=== PATIENT | female | born 1955 | race Caucasian/White ===

== ENCOUNTER → 2016-06-15 | Outpatient (CLI) | payer BC ==
--- NOTE | 2016-06-15 15:47 | RAD ---
DATE: 06/15/2016 EXAM: DIGITAL SCREEN BILAT W/CAD HISTORY: Routine screening COMPARISON: 09/20/2012, 04/22/2010 This study was interpreted with the benefit of Computerized Aided Detection (CAD). FINDINGS: The breasts are predominantly fatty in nature. No new or enlarging breast densities are seen. Minimal benign type calcification is noted. No suspicious microcalcifications are evident. IMPRESSION: There is no mammographic evidence of malignancy in either breast. BI-RADS CATEGORY: 2 BENIGN FINDING(S) RECOMMENDED FOLLOW-UP: 12M 12 MONTH FOLLOW-UP PQRS compliance statement: Patient information was entered into a reminder system with a target due date for the next mammogram. Mammography is a sensitive method for finding small breast cancers, but it does not detect them all and is not a substitute for careful clinical examination. A negative mammogram does not negate a clinically suspicious finding and should not result in delay in biopsying a clinically suspicious abnormality. "Our facility is accredited by the [employer] Mammography Program."
== END | disposition home or self-care (01) ==
LOC: MAMMO 08:01
PROVIDERS: ATTEND Internal Medicine
DX: Z12.31 Encounter for screening mammogram for malignant neoplasm of breast (principal)
CPT/HCPCS: G0202; 77067

== ENCOUNTER → 2016-06-22 | Outpatient (CLI) | payer BC ==
--- NOTE | 2016-06-22 17:21 | KCIC ---
Examination: DEXA scan. HISTORY History of postmenopausal COMPARISON None available FINDINGS The bone mineral Density in the lumbar spine is 1.177 grams/centimeter square with a T-score of 1.2 and Z-score of 2.8. The bone mineral density in the left femoral neck is 0.757 grams per cm2 with a T-score of -1.5 and Z-score of -0.4. IMPRESSION The bone mineral density in the left femoral neck is osteopenia. Electronically signed by: Mir Walden (Jun 22, 2016 17:19:53)
== END | disposition home or self-care (01) ==
LOC: KCIC DEXA 09:54
PROVIDERS: ATTEND Nurse Practitioner
DX: Z78.0 Asymptomatic menopausal state (principal); M85.80 Other specified disorders of bone density and structure, unspecified site
CPT/HCPCS: 77080

== ENCOUNTER → 2016-10-22 | Outpatient (CLI) | payer BC ==
--- NOTE | 2016-10-22 14:24 | RAD ---
EXAM: Right lower extremity venous Doppler. HISTORY: Right lower extremity pain/swelling. COMPARISON: None. FINDINGS: Grayscale and Doppler analysis of the right lower extremity deep venous system was performed with graded compression and augmentation. The common femoral, greater saphenous, superficial femoral, popliteal and calf veins were assessed. There is no evidence of deep venous thrombosis. IMPRESSION: 1. No evidence of deep venous thrombosis.
== END | disposition home or self-care (01) ==
LOC: US 13:46
PROVIDERS: ATTEND Internal Medicine
DX: M79.604 Pain in right leg (principal)
CPT/HCPCS: 93971

== ENCOUNTER → 2017-09-10 | Outpatient (CLI) | payer BC | END | disposition home or self-care (01) | LOC: MAMMO 10:30 | DX: Z12.31 Encounter for screening mammogram for malignant neoplasm of breast (principal) | CPT/HCPCS: 77067 ==

== ENCOUNTER 2019-01-30 11:33 | Inpatient (IN) | payer BC ==
[~2019-01-30] VITALS: Ht 154.9 cm; Wt 84.0 kg
[2019-01-30] MEDS ORDERED: NITROGLYCERIN SUBLINGUAL 0.4 MG BOTTLE OF 25. SL PRN ×2 (12:45→16:00)
[2019-01-30] MEDS ORDERED: IPRATRPIUM/ALBUTEROL 0.5/2.5MG 3 ML NEBU. NEB ONE ×2 (12:45)
[2019-01-30] MEDS ORDERED: ASPIRIN 325 MG TABLET PO ONE (12:45)
--- NOTE | 2019-01-30 12:56 | EKG ---
[facility] [address] [place] [address] Test Date: 2019-01-30 Test Time: 12:24:13 Pat Name: CASSIA ACOSTA Department: Room: Gender: F Director Of Strategic Communications: : 1955 Requested By: LEANNE CRUZ Order Number: [id number] Reading MD: Augusto Vasuqez MD Measurements Intervals [place] Rate: 73 P: 63 DC: 146 QRS: 36 QRSD: 84 T: 86 QT: 374 QTc: 416 Interpretive Statements SINUS RHYTHM Electronically Signed On 02-13-2019 9:29:23 HOOP RIVETER by Augusto Vasquez MD
[2019-01-30 13:02] LABS: BARBITURATES NEG (NEG); BENZODIAZEPINES NEG (NEG); CANNABINOIDS NEG (NEG); COCAINE NEG (NEG); METHADONE NEG (NEG); OPIATES NEG (NEG); PHENCYCLIDINE NEG (NEG)
[2019-01-30 13:03] LABS: AMPHETAMINE/METHAMPHETAMINE NEG (NEG)
[2019-01-30 13:08] LABS: BILIRUBIN,URINE NEGATIVE (NEG); CLARITY,URINE CLEAR; COLOR,URINE YELLOW; NITRITE,URINE NEGATIVE (NEG); PROTEIN,URINE NEGATIVE (NEG-TRACE)
[2019-01-30 13:16] LABS: BASO % 0 % (0-3); EOS # 0.1 x10^3/uL (0.0-0.7); EOS % 1 % (0-3); HEMOGLOBIN 12.1 g/dL (12.0-15.5); LYMPH % 20 % (24-48); MEAN CORPUSCULAR HEMOGLOBIN 33 pg (25-35); MEAN CORPUSCULAR HGB CONC 36 g/dL (31-37); MEAN CORPUSCULAR VOLUME 91 fL (79-100); MONO # 0.7 x10^3/uL (0.0-1.1); MONO % 7 % (0-9); NEUT # 6.9 x10^3/uL (1.8-7.7); NEUT % 71 % (31-73); PLATELET COUNT 237 x10^3/uL (140-400); RED BLOOD COUNT 3.72 x10^6/uL (3.50-5.40); RED CELL DISTRIBUTION WIDTH 12.4 % (11.5-14.5); WHITE BLOOD COUNT 9.7 x10^3/uL (4.0-11.0)
--- NOTE | 2019-01-30 13:23 | RAD ---
Single AP view of the chest. Comparison: None. Indication: Chest pain Findings: The heart is at the upper limits of normal. There is no pneumothorax or effusion. No air space or interstitial disease. Impression: 1. No acute cardiopulmonary process. Electronically signed by: Jacek Santos MD (01/30/2019 1:20 PM) [facility]
[2019-01-30 13:29] LABS: CALCIUM 9.3 mg/dL (8.5-10.1); CREATININE 0.6 mg/dL (0.6-1.0); POTASSIUM 4.1 mmol/L (3.5-5.1)
[2019-01-30 13:36] LABS: ALBUMIN 3.4 g/dL (3.4-5.0); ALBUMIN/GLOBULIN RATIO 0.9 (1.0-1.7); TOTAL BILIRUBIN 0.6 mg/dL (0.2-1.0)
[2019-01-30 13:46] LABS: CREATINE KINASE 47 U/L (26-192)
[2019-01-30 13:50] LABS: BACTERIA,URINE 0 /HPF (0-FEW); RBC,URINE 0 /HPF (0-2); SQUAMOUS EPITHELIAL CELL,UR OCC /LPF; WBC,URINE OCC /HPF (0-4)
[2019-01-30] MEDS ORDERED: IOHEXOL 350 MG/ML 100 ML VIAL. IV ONE (14:15)
[2019-01-30] MEDS ORDERED: CONTRAST GIVEN. MC PRN (14:15)
--- NOTE | 2019-01-30 14:58 | RAD ---
CT ANGIOGRAPHY CHEST History: Chest pain. Elevated d-dimer. Technique: CT of the chest was performed with contrast. PE protocol. Maximum intensity projection coronal and sagittal reconstructions were performed. Exposure: One or more of the following individualized dose reduction techniques were utilized for this examination: 1. Automated exposure control 2. Adjustment of the mA and/or kV according to patient size 3. Use of iterative reconstruction technique. Contrast: 100 mL Omnipaque 350 IV contrast. Comparison: None Findings: Chest: No pulmonary embolism. No aortic aneurysm or dissection. Left upper lobe masslike consolidation measures approximately 2.4 x 2.3 cm. There is adjacent groundglass opacities. Additional nodular opacity within the right middle lobe measures 1.3 x 0.8 cm. No pleural effusion. Left lower lobe nodular opacity measures 1.2 x 0.7 cm (image #113) Bilateral calcified granulomas. 2 mm right middle lobe pulmonary nodule (image #97). Mild prominent mediastinal lymph nodes largest prevascular lymph node measures 2.5 x 1.1 cm. Upper abdomen: The imaged upper abdomen is unremarkable. Bones: No pathologic osseous lesions. Impression: 1. Left upper lobe masslike consolidation with adjacent groundglass opacities, may represent pneumonia or inflammatory process. Recommend short-term interval follow-up after treatment to ensure resolution and exclude malignancy. 2. Additional nodular opacities within the right middle and left lower lobe, may relate to infectious or inflammatory process. Recommend attention on follow-up. 3. Mildly prominent mediastinal lymph nodes, likely reactive. Recommend attention on follow-up. Electronically signed by: Elfego Uribe DO (01/30/2019 2:55 PM) [facility]
[2019-01-30] MEDS ORDERED: ONDANSETRON PF 4 MG/2 ML VIAL. IV PRN (16:00)
[2019-01-30] MEDS ORDERED: MORPHINE SULFATE 4 MG/ML VIAL. IV PRN (16:00)
[2019-01-30] MEDS ORDERED: ACETAMINOPHEN 325 MG TABLET. PO PRN (16:00)
[2019-01-30] MEDS ORDERED: cefTRIAXone IV Push 1 GM VIAL. IVP ONE (16:30)
--- NOTE | 2019-01-30 17:49 | PHYS DOC ---
Past Medical History Past Medical History: Hypertension Additional Past Medical Histor: hypokalemia Past Surgical History: Cholecystectomy Alcohol Use: None Drug Use: None Adult General Chief Complaint Chief Complaint: PLEURISY HPI HPI Patient is a 64 year old female who presents to the ED today complaining of 9 out of 10 left-sided chest pain radiating to her back that has been going on since this morning, patient describes the pain as sharp and intermittent worse when she is coughing. She states she's had a cough for a couple days. Patient denies any fever. She states she is a smoker. Denies anything specifically relieving this pain. Review of Systems Review of Systems Constitutional: Denies fever or chills [] Eyes: Denies change in visual acuity, redness, or eye pain [] HENT: Denies nasal congestion or sore throat [] Respiratory: Reports cough, denies shortness of breath [] Cardiovascular: Reports chest pain GI: Denies abdominal pain, nausea, vomiting, bloody stools or diarrhea [] : Denies dysuria or hematuria [] Musculoskeletal: Denies back pain or joint pain [] Integument: Denies rash or skin lesions [] Neurologic: Denies headache, focal weakness or sensory changes [] All other systems were reviewed and found to be within normal limits, except as documented in this note. Current Medications Current Medications Current Medications Medications (Trade) Dose Ordered Sig/Jack Start Time Stop Time Status Last Admin Dose Admin Albuterol/ Ipratropium (Duoneb) 3 ml 1X ONCE 01/30/19 12:45 01/30/19 13:00 DC Aspirin (Fabrizio Aspirin) 325 mg 1X ONCE 01/30/19 12:45 01/30/19 13:00 DC 01/30/19 13:49 325 MG Info (CONTRAST GIVEN -- Rx MONITORING) 1 each PRN DAILY PRN 01/30/19 14:15 02/01/19 14:14 Iohexol (Omnipaque 350 Mg/ml) 100 ml 1X ONCE 01/30/19 14:15 01/30/19 14:16 DC 01/30/19 14:09 100 ML Nitroglycerin (Nitrostat) 0.4 mg PRN Q5MIN PRN 01/30/19 12:45 01/31/19 12:44 Allergies Allergies Allergies Coded Allergies Type Severity Reaction Last Updated Verified erythromycin base Allergy Mild 01/30/19 Yes Physical Exam Physical Exam Constitutional: Well developed, well nourished, no acute distress, non-toxic appearance. [] HENT: Normocephalic, atraumatic, bilateral external ears normal, oropharynx moist, no oral exudates, nose normal. [] Eyes: PERRLA, EOMI, conjunctiva normal, no discharge. [] Neck: Normal range of motion, no tenderness, supple, no stridor. [] Cardiovascular:Heart rate regular rhythm, no murmur [] Lungs & Thorax: Diminished breath sounds to posterior lung bases worse on the left Abdomen: Bowel sounds normal, soft, no tenderness, no masses, no pulsatile masses. [] Skin: Warm, dry, no erythema, no rash. [] Back: No tenderness, no CVA tenderness. [] Extremities: No tenderness, no cyanosis, no clubbing, ROM intact, no edema. [] Neurologic: Alert and oriented X 3, normal motor function, normal sensory function, no focal deficits noted. [] Psychologic: Affect normal, judgement normal, mood normal. [] Current Patient Data Vital Signs Vital Signs Date Time Temp Pulse Resp B/P (MAP) Pulse Ox O2 Delivery O2 Flow Rate FiO2 01/30/19 13:50 78 20 156/70 (98) 97 Room Air 01/30/19 12:51 98.7 98.7 Lab Values Laboratory Tests Test 01/30/19 12:13 01/30/19 13:05 Urine Color Yellow Urine Clarity Clear Urine pH 6.0 Urine Specific [place] 1.015 Urine Protein Negative mg/dL (NEG-TRACE) Urine Glucose (UA) Negative mg/dL (NEG) Urine Ketones (Stick) Negative mg/dL (NEG) Urine Blood Negative (NEG) Urine Nitrite Negative (NEG) Urine Bilirubin Negative (NEG) Urine Urobilinogen Dipstick 1.0 mg/dL (0.2 mg/dL) Urine Leukocyte Esterase Negative (NEG) Urine RBC 0 /HPF (0-2) Urine WBC Occ /HPF (0-4) Urine Squamous Epithelial Cells Occ /LPF Urine Bacteria 0 /HPF (0-FEW) Urine Mucus Slight /LPF Urine Opiates Screen Neg (NEG) Urine Methadone Screen Neg (NEG) Urine Barbiturates Neg (NEG) Urine Phencyclidine Screen Neg (NEG) Urine Amphetamine/Methamphetamine Neg (NEG) Urine Benzodiazepines Screen Neg (NEG) Urine Cocaine Screen Neg (NEG) Urine Cannabinoids Screen Neg (NEG) Urine Ethyl Alcohol Neg (NEG) White Blood Count 9.7 x10^3/uL (4.0-11.0) Red Blood Count 3.72 x10^6/uL (3.50-5.40) Hemoglobin 12.1 g/dL (12.0-15.5) Hematocrit 34.0 % (36.0-47.0) L Mean Corpuscular Volume 91 fL (79-100) Mean Corpuscular Hemoglobin 33 pg (25-35) Mean Corpuscular Hemoglobin Concent 36 g/dL (31-37) Red Cell Distribution Width 12.4 % (11.5-14.5) Platelet Count 237 x10^3/uL (140-400) Neutrophils (%) (Auto) 71 % (31-73) Lymphocytes (%) (Auto) 20 % (24-48) L Monocytes (%) (Auto) 7 % (0-9) Eosinophils (%) (Auto) 1 % (0-3) Basophils (%) (Auto) 0 % (0-3) Neutrophils # (Auto) 6.9 x10^3/uL (1.8-7.7) Lymphocytes # (Auto) 2.0 x10^3/uL (1.0-4.8) Monocytes # (Auto) 0.7 x10^3/uL (0.0-1.1) Eosinophils # (Auto) 0.1 x10^3/uL (0.0-0.7) Basophils # (Auto) 0.0 x10^3/uL (0.0-0.2) D-Dimer (Rebeka) 1.03 ug/mlFEU (0.00-0.50) H Sodium Level 140 mmol/L (136-145) Potassium Level 4.1 mmol/L (3.5-5.1) Chloride Level 102 mmol/L (98-107) Carbon Dioxide Level 31 mmol/L (21-32) Anion Gap 7 (6-14) Blood Urea Nitrogen 11 mg/dL (7-20) Creatinine 0.6 mg/dL (0.6-1.0) Estimated GFR (Cockcroft-Gault) 100.0 BUN/Creatinine Ratio 18 (6-20) Glucose Level 116 mg/dL (70-99) H Calcium Level 9.3 mg/dL (8.5-10.1) Magnesium Level 2.0 mg/dL (1.8-2.4) Total Bilirubin 0.6 mg/dL (0.2-1.0) Aspartate Amino Transferase (AST) 14 U/L (15-37) L Alanine Aminotransferase (ALT) 13 U/L (14-59) L Alkaline Phosphatase 64 U/L (46-116) Creatine Kinase 47 U/L (26-192) Creatine Kinase MB (Mass) 0.6 ng/mL (0.0-3.6) Creatine Kinase MB Relative Index % (0-4) Troponin I Quantitative < 0.017 ng/mL (0.000-0.055) NJ-Rps-O-Type Natriuretic Peptide 244 pg/mL (0-124) H Total Protein 7.0 g/dL (6.4-8.2) Albumin 3.4 g/dL (3.4-5.0) Albumin/Globulin Ratio 0.9 (1.0-1.7) L Thyroid Stimulating Hormone (TSH) 0.620 uIU/mL (0.358-3.74) Laboratory Tests 01/30/19 13:05 Laboratory Tests 01/30/19 13:05 EKG EKG [address] Earl sinus rhythm HR 73 no STEMI[] Radiology/Procedures Radiology/Procedures PROCEDURE: PORTABLE CHEST 1V Single AP view of the chest. Comparison: None. Indication: Chest pain Findings: The heart is at the upper limits of normal. There is no pneumothorax or effusion. No air space or interstitial disease. Impression: 1. No acute cardiopulmonary process. Electronically signed by: Jacek Santos MD (01/30/2019 1:20 PM) [facility] DICTATED and SIGNED BY: JACEK SANTOS MD DATE: 01/30/19 1320 []PROCEDURE: CT ANGIOGRAPHY CHEST CT ANGIOGRAPHY CHEST History: Chest pain. Elevated d-dimer. Technique: CT of the chest was performed with contrast. PE protocol. Maximum intensity projection coronal and sagittal reconstructions were performed. Exposure: One or more of the following individualized dose reduction techniques were utilized for this examination: 1. Automated exposure control 2. Adjustment of the mA and/or kV according to patient size 3. Use of iterative reconstruction technique. Contrast: 100 mL Omnipaque 350 IV contrast. Comparison: None Findings: Chest: No pulmonary embolism. No aortic aneurysm or dissection. Left upper lobe masslike consolidation measures approximately 2.4 x 2.3 cm. There is adjacent groundglass opacities. Additional nodular opacity within the right middle lobe measures 1.3 x 0.8 cm. No pleural effusion. Left lower lobe nodular opacity measures 1.2 x 0.7 cm (image #113) Bilateral calcified granulomas. 2 mm right middle lobe pulmonary nodule (image #97). Mild prominent mediastinal lymph nodes largest prevascular lymph node measures 2.5 x 1.1 cm. Upper abdomen: The imaged upper abdomen is unremarkable. Bones: No pathologic osseous lesions. Impression: 1. Left upper lobe masslike consolidation with adjacent groundglass opacities, may represent pneumonia or inflammatory process. Recommend short-term interval follow-up after treatment to ensure resolution and exclude malignancy. 2. Additional nodular opacities within the right middle and left lower lobe, may relate to infectious or inflammatory process. Recommend attention on follow-up. 3. Mildly prominent mediastinal lymph nodes, likely reactive. Recommend attention on follow-up. Electronically signed by: Elfego Uribe DO (01/30/2019 2:55 PM) [facility] DICTATED and SIGNED BY: ELFEGO URIBE DO DATE: 01/30/19 1459 Course & Med Decision Making Course & Med Decision Making Pertinent Labs and Imaging studies reviewed. (See chart for details) This is a 64-year-old female patient presented to the ED today with complaints of left-sided chest pain worse on coughing that began this morning. EKG was negative, troponin is normal, heart score is 4, CBC with a normal WBC, CMP-no acute findings, D-dimer 1.03. CTA chest was done CTA -Left upper lobe masslike consolidation wi th adjacent groundglass opacities, may represent pneumonia or inflammatory process. Recommend short-term interval follow-up after treatment to ensure resolution and exclude malignancy. Additional nodular opacities within the right middle and left lower lobe, may relate to infectious or inflammatory process. Recommend attention on follow-up. Mildly prominent mediastinal lymph nodes, likely reacti ve. Recommend attention on follow-up. Spoke with Dr. Maldonado who accepted patient for admission and requested pulmonary consult Routine consult placed for cardiology and pulmonology Given Rocephin in the ED Dragon Disclaimer Dragon Disclaimer This electronic medical record was generated, in whole or in part, using a voice recognition dictation system. The HEART Score for CP Pts HEART Score for Chest Pain: HEART Score for Chest Pain Response (Comments) Value History Slighlty/Non-Suspicious 0 ECG Normal 0 Age > 65 2 Risk Factors 1 or 2 Risk Factors 1 Troponin >1-<3x Normal Limit 1 Total 4 Risk Factors: Risk Factors: DM, Current or recent (<one month) smoker, HTN, HLP, family history of CAD, obesity. Risk Scores: Score 0 - 3: 2.5% MACE over next 6 weeks - Discharge Home Score 4 - 6: 20.3% MACE over next 6 weeks - Admit for Clinical Observation Score 7 - 10: 72.7% MACE over next 6 weeks - Early Invasive Strategies Departure Departure Impression: Primary Impression: Chest pain Additional Impression: Community acquired pneumonia Disposition: 09 ADMITTED INPATIENT Condition: STABLE Referrals: AILIN MALDONADO MD (PCP) Problem Qualifiers Primary Impression: Chest pain Chest pain type: unspecified Qualified Codes: R07.9 - Chest pain, unspecified Additional Impression: Community acquired pneumonia Laterality: left Lung location: lower lobe of lung Qualified Codes: J18.1 - Lobar pneumonia, unspecified organism LEANNE CRUZ 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
--- NOTE | 2019-01-30 17:55 | PDOC ---
Provider Note Provider Note Patient seen. History and Physical dictated. See dictation#[id number] AILIN PATEL MD Jan 30, 2019 17:55
[2019-01-30] MEDS ORDERED: MAGN400T22 PO (17:58)
[2019-01-30] MEDS ORDERED: CITA20TA6 PO (17:58)
[2019-01-30] MEDS ORDERED: MONT10TA49 PO (17:58)
[2019-01-30] MEDS ORDERED: TIZA4TAB2 PO (17:58)
[2019-01-30] MEDS ORDERED: GABA600T7 PO (17:58)
[2019-01-30] MEDS ORDERED: POTA10TA12 PO (17:58)
[2019-01-30] MEDS ORDERED: CYAN-25 PO (17:58)
[2019-01-30] MEDS ORDERED: FLUT9.9S NS (17:58)
[2019-01-30] MEDS ORDERED: CETI10TA22 PO (17:58)
[2019-01-30] MEDS ORDERED: LISI-130 PO (17:58)
[2019-01-30 18:00] VITALS: BP 126/60
--- NOTE | 2019-01-30 18:30 | NUR ---
pt admitted to room 260. oriented to room and call light. denies pain at this time. meal tray ordered. pt currently SR at 87 on the monitor.
[2019-01-30] MEDS: ENOXAPARIN 40 MG/0.4 ML SYRINGE. SQ SCH (18:38)
[2019-01-30] MEDS: MONTELUKAST SODIUM 10 MG TABLET. PO SCH (18:40)
--- NOTE | 2019-01-30 18:41 | NUR ---
pt already took cole today
--- NOTE | 2019-01-30 18:45 | HP ---
ADMIT DATE: HISTORY OF PRESENT ILLNESS: This is a 64-year-old female started having chest pain, since last night. The pain is worse with deep breathing and it is in the left upper chest. The patient also was feeling very cold for the last 3 days prior to this episode. She denies any chills, fever, nausea, vomiting, heartburn, abdominal pain, dyspnea, dizziness or diaphoresis. She denies any palpitations. Because of the persistent chest pain, she came to the Emergency Room. In the Emergency Room, WBC count was 9.7, hemoglobin 12.1. Sodium 140, potassium 4.1, BUN 11, creatinine 0.6. BNP was 244, albumin 3.4. Troponin levels were less than 0.017. CK 47, CK-MB 0.6. TSH 0.620. Urine drug screen was negative. Urinalysis was negative. D-dimer was 1.03. WBC count 9.7, hemoglobin 12.1, polys 71. Chest x-ray was unremarkable for any acute changes, but the CTA of the chest showed left upper lobe mass-like consolidation with adjacent ground-glass opacities, may represent pneumonia or inflammatory process. Additional nodular opacities within the right middle, right lower and left lower lobe may relate to infectious or inflammatory process, mildly prominent mediastinal lymph nodes, likely reactive. Because of the chest pain, possible pneumonia and lung mass, the patient was admitted for further evaluation and management. SYSTEMS REVIEW: As noted in the history of present illness. The patient denies any skin rash, diarrhea or any other symptoms. Other systems reviewed and are negative. PAST MEDICAL HISTORY: The patient has a history of hypertension, depression, anxiety, allergic rhinitis, Nance's palsy, COPD, obesity. PAST SURGICAL HISTORY: Includes cholecystectomy for cholelithiasis. ALLERGIES: THE PATIENT IS ALLERGIC TO ERYTHROMYCIN. MEDICATIONS: Reviewed and reconciled. FAMILY HISTORY: Brother had carcinoma of lung and brain and liver. Father had pancreatic cancer. Mother and sister had hypertension. SOCIAL HISTORY: The patient has a history of smoking. No history of alcoholism or drug abuse. PHYSICAL EXAMINATION: VITAL SIGNS: Temperature 98.7, pulse 76 per minute, respirations 14 per minute, blood pressure 139/65 mmHg. GENERAL: The patient is alert, oriented and not in acute distress. EYES: Pupils equal, reacting to light. Conjunctivae are pink. Sclerae muddy. HENT: Mild congestion of throat. SKIN: Warm and dry. There is no rash. NECK: Supple. JVP normal. No thyromegaly. No lymphadenopathy. Trachea midline. LUNGS: Decreased breath sounds bilaterally with no wheezing. Occasional rhonchi. CARDIOVASCULAR: S1, S2 regular. ABDOMEN: Soft, nontender, no guarding, no rigidity. Bowel sounds present. EXTREMITIES: No edema. CENTRAL NERVOUS SYSTEM: Alert and oriented. LABORATORY FINDINGS: As noted in the history of present illness. IMPRESSION: 1. Pneumonia. 2. Exacerbation of chronic obstructive pulmonary disease. 3. Peripheral neuropathy. 4. Chest pain. 5. Hypertension. 6. Left upper lobe lung mass. 7. Allergic rhinitis. 8. Idiopathic peripheral neuropathy, on gabapentin. 9. Allergic rhinitis. 10. Depression. 11. Anxiety. PLAN: The patient is started on IV Rocephin. We will consult Dr. Bonilla for pulmonary evaluation and management. Consult Dr. Garcia for cardiology evaluation and management. Recheck labs in a.m. Order influenza A and B test, order Lovenox subcutaneously for DVT prophylaxis. For details, please refer to the orders. AILIN PATEL MD DR: RADHA/stephan JOB#: [id number] / [id number]
[2019-01-30 19:00] VITALS: BP 111/51
[2019-01-30] MEDS: IPRATRPIUM/ALBUTEROL 0.5/2.5MG 3 ML NEBU. NEB SCH (19:22)
[2019-01-30 19:25] LABS: INFLUENZA A PATIENT NEGATIVE (NEGATIVE); INFLUENZA B PATIENT NEGATIVE (NEGATIVE)
[2019-01-30] MEDS: GABAPENTIN 300 MG CAPSULE. PO SCH (21:08)
[2019-01-30 23:10] VITALS: BP 145/65
[2019-01-31 03:40] VITALS: BP 156/72
[2019-01-31 05:59] LABS: BASO % 0 % (0-3); EOS # 0.1 x10^3/uL (0.0-0.7); EOS % 1 % (0-3); HEMATOCRIT 32.7 % (36.0-47.0); HEMOGLOBIN 11.6 g/dL (12.0-15.5); LYMPH # 1.9 x10^3/uL (1.0-4.8); LYMPH % 21 % (24-48); MEAN CORPUSCULAR HEMOGLOBIN 32 pg (25-35); MEAN CORPUSCULAR HGB CONC 35 g/dL (31-37); MEAN CORPUSCULAR VOLUME 91 fL (79-100); MONO # 0.7 x10^3/uL (0.0-1.1); MONO % 8 % (0-9); NEUT # 6.3 x10^3/uL (1.8-7.7); NEUT % 69 % (31-73); PLATELET COUNT 236 x10^3/uL (140-400); RED BLOOD COUNT 3.59 x10^6/uL (3.50-5.40); RED CELL DISTRIBUTION WIDTH 12.1 % (11.5-14.5); WHITE BLOOD COUNT 9.1 x10^3/uL (4.0-11.0)
[2019-01-31 06:30] LABS: CALCIUM 8.8 mg/dL (8.5-10.1); CREATININE 0.7 mg/dL (0.6-1.0); GFR 83.7; POTASSIUM 4.2 mmol/L (3.5-5.1)
[2019-01-31 07:00] VITALS: BP 126/58
[2019-01-31] MEDS: IPRATRPIUM/ALBUTEROL 0.5/2.5MG 3 ML NEBU. NEB SCH ×4 (07:22→19:41)
[2019-01-31] MEDS: CITALOPRAM 20 MG TABLET. PO SCH (08:40)
[2019-01-31] MEDS: ACETAMINOPHEN 325 MG TABLET. PO PRN ×2 (08:40→22:04)
[2019-01-31] MEDS: GABAPENTIN 300 MG CAPSULE. PO SCH ×2 (08:40→22:01)
[2019-01-31] MEDS: CYANOCOBALAMIN (VITAMIN B-12) 1,000 MCG TABLET. PO SCH (08:40)
[2019-01-31] MEDS: MAGNESIUM OXIDE 400 MG TABLET PO SCH (08:40)
[2019-01-31] MEDS: FLUTICASONE 50MCG/NASAL SPRAY 16GM BOTTLE. NS SCH (08:40)
[2019-01-31] MEDS: CETIRIZINE HCL 10 MG TABLET. PO SCH (08:40)
[2019-01-31] MEDS ORDERED: AZITHRMYCN 500MG IVPB FOR OMNI 250 ML IV SCH (09:00)
[2019-01-31] MEDS: cefTRIAXone IV Push 1 GM VIAL. IVP SCH (09:51)
--- NOTE | 2019-01-31 10:42 | PDOC ---
IM PROGRESS NOTES- Subjective Subjective Has pain in the left upper chest. Feeling better. Objective Vitals/I&O Vital Signs Date Time Temp Pulse Resp B/P (MAP) Pulse Ox O2 Delivery O2 Flow Rate FiO2 01/31/19 08:00 Room Air 01/31/19 07:22 94 01/31/19 07:00 97.9 80 18 126/58 (80) 97.9 I & O 01/30/19 01/30/19 01/31/19 15:00 23:00 07:00 Intake Total 300 ml Output Total 600 ml Balance -300 ml Physical Exam Physical Exam General appearance - alert,ill appearing, and in no distress and oriented to person, place, and time Mental Status - alert, oriented to person, place, and time, affect appropriate to mood Head - normal Chest -decreased breath sounds bilaterally Heart - S1 and S2 normal Abdomen - soft, nontender Neurological - alert and oriented Musculoskeletal - no muscular tenderness noted Extremities - no pedal edema Skin - warm and dry Labs Laboratory Tests Test 01/30/19 12:13 01/30/19 13:05 01/30/19 16:30 01/30/19 18:48 Urine Color Yellow Urine Clarity Clear Urine pH 6.0 Urine Specific [place] 1.015 Urine Protein Negative mg/dL (NEG-TRACE) Urine Glucose (UA) Negative mg/dL (NEG) Urine Ketones (Stick) Negative mg/dL (NEG) Urine Blood Negative (NEG) Urine Nitrite Negative (NEG) Urine Bilirubin Negative (NEG) Urine Urobilinogen Dipstick 1.0 mg/dL (0.2 mg/dL) Urine Leukocyte Esterase Negative (NEG) Urine RBC 0 /HPF (0-2) Urine WBC Occ /HPF (0-4) Urine Squamous Epithelial Cells Occ /LPF Urine Bacteria 0 /HPF (0-FEW) Urine Mucus Slight /LPF Urine Opiates Screen Neg (NEG) Urine Methadone Screen Neg (NEG) Urine Barbiturates Neg (NEG) Urine Phencyclidine Screen Neg (NEG) Urine Amphetamine/Methamphetamine Neg (NEG) Urine Benzodiazepines Screen Neg (NEG) Urine Cocaine Screen Neg (NEG) Urine Cannabinoids Screen Neg (NEG) Urine Ethyl Alcohol Neg (NEG) White Blood Count 9.7 x10^3/uL (4.0-11.0) Red Blood Count 3.72 x10^6/uL (3.50-5.40) Hemoglobin 12.1 g/dL (12.0-15.5) Hematocrit 34.0 % (36.0-47.0) L Mean Corpuscular Volume 91 fL (79-100) Mean Corpuscular Hemoglobin 33 pg (25-35) Mean Corpuscular Hemoglobin Concent 36 g/dL (31-37) Red Cell Distribution Width 12.4 % (11.5-14.5) Platelet Count 237 x10^3/uL (140-400) Neutrophils (%) (Auto) 71 % (31-73) Lymphocytes (%) (Auto) 20 % (24-48) L Monocytes (%) (Auto) 7 % (0-9) Eosinophils (%) (Auto) 1 % (0-3) Basophils (%) (Auto) 0 % (0-3) Neutrophils # (Auto) 6.9 x10^3/uL (1.8-7.7) Lymphocytes # (Auto) 2.0 x10^3/uL (1.0-4.8) Monocytes # (Auto) 0.7 x10^3/uL (0.0-1.1) Eosinophils # (Auto) 0.1 x10^3/uL (0.0-0.7) Basophils # (Auto) 0.0 x10^3/uL (0.0-0.2) D-Dimer (Rebeka) 1.03 ug/mlFEU (0.00-0.50) H Sodium Level 140 mmol/L (136-145) Potassium Level 4.1 mmol/L (3.5-5.1) Chloride Level 102 mmol/L (98-107) Carbon Dioxide Level 31 mmol/L (21-32) Anion Gap 7 (6-14) Blood Urea Nitrogen 11 mg/dL (7-20) Creatinine 0.6 mg/dL (0.6-1.0) Estimated GFR (Cockcroft-Gault) 100.0 BUN/Creatinine Ratio 18 (6-20) Glucose Level 116 mg/dL (70-99) H Calcium Level 9.3 mg/dL (8.5-10.1) Magnesium Level 2.0 mg/dL (1.8-2.4) Total Bilirubin 0.6 mg/dL (0.2-1.0) Aspartate Amino Transferase (AST) 14 U/L (15-37) L Alanine Aminotransferase (ALT) 13 U/L (14-59) L Alkaline Phosphatase 64 U/L (46-116) Creatine Kinase 47 U/L (26-192) Creatine Kinase MB (Mass) 0.6 ng/mL (0.0-3.6) Creatine Kinase MB Relative Index % (0-4) Troponin I Quantitative < 0.017 ng/mL (0.000-0.055) < 0.017 ng/mL (0.000-0.055) UG-Nfa-W-Type Natriuretic Peptide 244 pg/mL (0-124) H Total Protein 7.0 g/dL (6.4-8.2) Albumin 3.4 g/dL (3.4-5.0) Albumin/Globulin Ratio 0.9 (1.0-1.7) L Thyroid Stimulating Hormone (TSH) 0.620 uIU/mL (0.358-3.74) Influenza Type A Antigen Negative (NEGATIVE) Influenza Type B Antigen Negative (NEGATIVE) Test 01/30/19 19:19 01/31/19 05:45 Troponin I Quantitative < 0.017 ng/mL (0.000-0.055) White Blood Count 9.1 x10^3/uL (4.0-11.0) Red Blood Count 3.59 x10^6/uL (3.50-5.40) Hemoglobin 11.6 g/dL (12.0-15.5) L Hematocrit 32.7 % (36.0-47.0) L Mean Corpuscular Volume 91 fL (79-100) Mean Corpuscular Hemoglobin 32 pg (25-35) Mean Corpuscular Hemoglobin Concent 35 g/dL (31-37) Red Cell Distribution Width 12.1 % (11.5-14.5) Platelet Count 236 x10^3/uL (140-400) Neutrophils (%) (Auto) 69 % (31-73) Lymphocytes (%) (Auto) 21 % (24-48) L Monocytes (%) (Auto) 8 % (0-9) Eosinophils (%) (Auto) 1 % (0-3) Basophils (%) (Auto) 0 % (0-3) Neutrophils # (Auto) 6.3 x10^3/uL (1.8-7.7) Lymphocytes # (Auto) 1.9 x10^3/uL (1.0-4.8) Monocytes # (Auto) 0.7 x10^3/uL (0.0-1.1) Eosinophils # (Auto) 0.1 x10^3/uL (0.0-0.7) Basophils # (Auto) 0.0 x10^3/uL (0.0-0.2) Sodium Level 140 mmol/L (136-145) Potassium Level 4.2 mmol/L (3.5-5.1) Chloride Level 103 mmol/L (98-107) Carbon Dioxide Level 30 mmol/L (21-32) Anion Gap 7 (6-14) Blood Urea Nitrogen 11 mg/dL (7-20) Creatinine 0.7 mg/dL (0.6-1.0) Estimated GFR (Cockcroft-Gault) 83.7 Glucose Level 109 mg/dL (70-99) H Calcium Level 8.8 mg/dL (8.5-10.1) Laboratory Tests 01/30/19 13:05 01/31/19 05:45 Laboratory Tests 01/30/19 13:05 01/31/19 05:45 Meds Current Medications Medications (Trade) Dose Ordered Sig/Jack Route PRN Reason Start Time Stop Time Status Last Admin Dose Admin Albuterol/ Ipratropium (Duoneb) 3 ml 1X ONCE NEB 01/30/19 12:45 01/30/19 13:00 DC 01/30/19 12:44 Aspirin (Fabrizio Aspirin) 325 mg 1X ONCE PO 01/30/19 12:45 01/30/19 13:00 DC 01/30/19 13:49 Iohexol (Omnipaque 350 Mg/ml) 100 ml 1X ONCE IV 01/30/19 14:15 01/30/19 14:16 DC 01/30/19 14:09 Ceftriaxone Sodium (Rocephin) 1 gm 1X ONCE IVP 01/30/19 16:30 01/30/19 16:31 DC 01/30/19 17:11 Enoxaparin Sodium (Lovenox 40mg Syringe) 40 mg Q24H SQ 01/30/19 17:30 01/30/19 18:38 Acetaminophen (Tylenol) 650 mg PRN Q6HRS PRN PO MILD PAIN / TEMP 01/30/19 17:45 01/31/19 08:40 Ceftriaxone Sodium (Rocephin) 1 gm Q24H IVP 01/31/19 10:00 01/31/19 09:51 Albuterol/ Ipratropium (Duoneb) 3 ml RTQID NEB 01/30/19 20:00 01/31/19 07:22 Cetirizine HCl (ZyrTEC) 10 mg DAILY PO 01/31/19 09:00 01/31/19 08:40 Citalopram Hydrobromide (CeleXA) 20 mg DAILY PO 01/31/19 09:00 01/31/19 08:40 Cyanocobalamin (Vitamin B-12) 5,000 mcg DAILY PO 01/31/19 09:00 01/31/19 08:40 Magnesium Oxide (Magnesium Oxide) 400 mg DAILY PO 01/31/19 09:00 01/31/19 08:40 Fluticasone Propionate (Flonase) 2 spray DAILY NS 01/31/19 09:00 01/31/19 08:40 Gabapentin (Neurontin) 300 mg BID PO 01/30/19 21:00 01/31/19 08:40 Assessment Assessment 1. Pneumonia. 2. Exacerbation of chronic obstructive pulmonary disease. 3. Peripheral neuropathy. 4. Chest pain. 5. Hypertension. 6. Left upper lobe lung mass. 7. Allergic rhinitis. 8. Idiopathic peripheral neuropathy, on gabapentin. 9. Allergic rhinitis. 10. Depression. 11. Anxiety. PLAN: The patient is started on IV Rocephin. We will consult Dr. Bonilla for pulmonary evaluation and management. Consult Dr. Garcia for cardiology evaluation and management. Recheck labs in a.m. Order influenza A and B test, order Lovenox subcutaneously for DVT prophylaxis. For details, please refer to the orders. Left lung mass Pneumonia-continue IV Rocephin Exacerbation of COPD- continue breathing treatment. Plan Plan For more details regarding further plans, please refer to the orders. AILIN PATEL MD Jan 31, 2019 10:42
--- NOTE | 2019-01-31 10:50 | PDOC2 ---
CARDIAC CONSULT DATE OF CONSULT Date of Consult DATE: 01/31/19 TIME: 10:43 REASON FOR CONSULT Reason for Consult: Chest pain REFERRING PHYSICIAN Referring Physician: Cheli SOURCE Source: Chart review, Patient HISTORY OF PRESENT ILLNESS HISTORY OF PRESENT ILLNESS This is a pleasant 64 yo female admitted for complains of cough and chest pain. Reports that yesterday morning she started having left scapular pain that radiated around her left chest going to sternal region. This was crampy feeling and exacerbated by deep inspiration. She then started coughing after that. She did have some yellow wputum. Also had episodes of heartburn the other night relieved by nolberto seltzer. Has been having some chills in the last few days but no recorded fever. Denies any nausea vomiting, diaphoresis, palpitations, frequent dizziness. Denies any HOLLOWAY nor exertional CP. No hx of VTE, CAD, recent heavy lifting or falls or injury. PAST MEDICAL HISTORY Cardiovascular: HTN Pulmonary: COPD (?) CENTRAL NERVOUS SYSTEM: Periperal neuropathy, Other ([place] palsy) GI: GERD Heme/Onc: No pertinent hx Hepatobiliary: Cholelithiasis Psych: Anxiety Musculoskeletal: Osteoarthritis Rheumatologic: No pertinent hx Infectious disease: No pertinent hx ENT: Allergic Rhinitis Renal/: No pertinent hx Endocrine: No pertinent hx Dermatology: No pertinent hx PAST SURGICAL HISTORY Past Surgical History: Cholecystectomy FAMILY HISTORY Family History noncontributory to CV SOCIAL HISTORY Smoke: Quit ALCOHOL: none Drugs: None Lives: with Family CURRENT MEDICATIONS CURRENT MEDICATIONS Current Medications Medications (Trade) Dose Ordered Sig/Jack Route PRN Reason Start Time Stop Time Status Last Admin Dose Admin Albuterol/ Ipratropium (Duoneb) 3 ml 1X ONCE NEB 01/30/19 12:45 01/30/19 13:00 DC 01/30/19 12:44 Aspirin (Fabrizio Aspirin) 325 mg 1X ONCE PO 01/30/19 12:45 01/30/19 13:00 DC 01/30/19 13:49 Iohexol (Omnipaque 350 Mg/ml) 100 ml 1X ONCE IV 01/30/19 14:15 01/30/19 14:16 DC 01/30/19 14:09 Ceftriaxone Sodium (Rocephin) 1 gm 1X ONCE IVP 01/30/19 16:30 01/30/19 16:31 DC 01/30/19 17:11 Enoxaparin Sodium (Lovenox 40mg Syringe) 40 mg Q24H SQ 01/30/19 17:30 01/30/19 18:38 Acetaminophen (Tylenol) 650 mg PRN Q6HRS PRN PO MILD PAIN / TEMP 01/30/19 17:45 01/31/19 08:40 Ceftriaxone Sodium (Rocephin) 1 gm Q24H IVP 01/31/19 10:00 01/31/19 09:51 Albuterol/ Ipratropium (Duoneb) 3 ml RTQID NEB 01/30/19 20:00 01/31/19 07:22 Cetirizine HCl (ZyrTEC) 10 mg DAILY PO 01/31/19 09:00 01/31/19 08:40 Citalopram Hydrobromide (CeleXA) 20 mg DAILY PO 01/31/19 09:00 01/31/19 08:40 Cyanocobalamin (Vitamin B-12) 5,000 mcg DAILY PO 01/31/19 09:00 01/31/19 08:40 Magnesium Oxide (Magnesium Oxide) 400 mg DAILY PO 01/31/19 09:00 01/31/19 08:40 Fluticasone Propionate (Flonase) 2 spray DAILY NS 01/31/19 09:00 01/31/19 08:40 Gabapentin (Neurontin) 300 mg BID PO 01/30/19 21:00 01/31/19 08:40 ALLERGIES ALLERGIES: Coded Allergies: erythromycin base (Verified Allergy, Mild, 01/30/19) ROS Review of System 14 point ROS evaluated with pertinent positives noted per HPI PHYSICAL EXAM General: Alert, Oriented X3, Cooperative, No acute distress HEENT: Atraumatic, Mucous membr. moist/pink Lungs: Clear to auscultation, Normal air movement Heart: Regular rate (SR no ectopies), Normal S1, Normal S2, No murmurs Abdomen: Soft, No tenderness Extremities: No cyanosis, No edema Skin: No breakdown, No significant lesion Neuro: Normal speech, Sensation intact Psych/Mental Status: Mental status NL, Mood NL MUSCULOSKELETAL: Osteoarthritic changes both hands VITALS/I&O VITALS/I&O: Vital Signs Date Time Temp Pulse Resp B/P (MAP) Pulse Ox O2 Delivery O2 Flow Rate FiO2 01/31/19 08:00 Room Air 01/31/19 07:22 94 01/31/19 07:00 97.9 80 18 126/58 (80) 97.9 I & O 01/30/19 01/30/19 01/31/19 15:00 23:00 07:00 Intake Total 300 ml Output Total 600 ml Balance -300 ml LABS Lab: Laboratory Tests Test 01/30/19 12:13 01/30/19 13:05 01/30/19 16:30 01/30/19 18:48 Urine Color Yellow Urine Clarity Clear Urine pH 6.0 Urine Specific [place] 1.015 Urine Protein Negative mg/dL (NEG-TRACE) Urine Glucose (UA) Negative mg/dL (NEG) Urine Ketones (Stick) Negative mg/dL (NEG) Urine Blood Negative (NEG) Urine Nitrite Negative (NEG) Urine Bilirubin Negative (NEG) Urine Urobilinogen Dipstick 1.0 mg/dL (0.2 mg/dL) Urine Leukocyte Esterase Negative (NEG) Urine RBC 0 /HPF (0-2) Urine WBC Occ /HPF (0-4) Urine Squamous Epithelial Cells Occ /LPF Urine Bacteria 0 /HPF (0-FEW) Urine Mucus Slight /LPF Urine Opiates Screen Neg (NEG) Urine Methadone Screen Neg (NEG) Urine Barbiturates Neg (NEG) Urine Phencyclidine Screen Neg (NEG) Urine Amphetamine/Methamphetamine Neg (NEG) Urine Benzodiazepines Screen Neg (NEG) Urine Cocaine Screen Neg (NEG) Urine Cannabinoids Screen Neg (NEG) Urine Ethyl Alcohol Neg (NEG) White Blood Count 9.7 x10^3/uL (4.0-11.0) Red Blood Count 3.72 x10^6/uL (3.50-5.40) Hemoglobin 12.1 g/dL (12.0-15.5) Hematocrit 34.0 % (36.0-47.0) L Mean Corpuscular Volume 91 fL (79-100) Mean Corpuscular Hemoglobin 33 pg (25-35) Mean Corpuscular Hemoglobin Concent 36 g/dL (31-37) Red Cell Distribution Width 12.4 % (11.5-14.5) Platelet Count 237 x10^3/uL (140-400) Neutrophils (%) (Auto) 71 % (31-73) Lymphocytes (%) (Auto) 20 % (24-48) L Monocytes (%) (Auto) 7 % (0-9) Eosinophils (%) (Auto) 1 % (0-3) Basophils (%) (Auto) 0 % (0-3) Neutrophils # (Auto) 6.9 x10^3/uL (1.8-7.7) Lymphocytes # (Auto) 2.0 x10^3/uL (1.0-4.8) Monocytes # (Auto) 0.7 x10^3/uL (0.0-1.1) Eosinophils # (Auto) 0.1 x10^3/uL (0.0-0.7) Basophils # (Auto) 0.0 x10^3/uL (0.0-0.2) D-Dimer (Rebeka) 1.03 ug/mlFEU (0.00-0.50) H Sodium Level 140 mmol/L (136-145) Potassium Level 4.1 mmol/L (3.5-5.1) Chloride Level 102 mmol/L (98-107) Carbon Dioxide Level 31 mmol/L (21-32) Anion Gap 7 (6-14) Blood Urea Nitrogen 11 mg/dL (7-20) Creatinine 0.6 mg/dL (0.6-1.0) Estimated GFR (Cockcroft-Gault) 100.0 BUN/Creatinine Ratio 18 (6-20) Glucose Level 116 mg/dL (70-99) H Calcium Level 9.3 mg/dL (8.5-10.1) Magnesium Level 2.0 mg/dL (1.8-2.4) Total Bilirubin 0.6 mg/dL (0.2-1.0) Aspartate Amino Transferase (AST) 14 U/L (15-37) L Alanine Aminotransferase (ALT) 13 U/L (14-59) L Alkaline Phosphatase 64 U/L (46-116) Creatine Kinase 47 U/L (26-192) Creatine Kinase MB (Mass) 0.6 ng/mL (0.0-3.6) Creatine Kinase MB Relative Index % (0-4) Troponin I Quantitative < 0.017 ng/mL (0.000-0.055) < 0.017 ng/mL (0.000-0.055) VN-Hsr-Z-Type Natriuretic Peptide 244 pg/mL (0-124) H Total Protein 7.0 g/dL (6.4-8.2) Albumin 3.4 g/dL (3.4-5.0) Albumin/Globulin Ratio 0.9 (1.0-1.7) L Thyroid Stimulating Hormone (TSH) 0.620 uIU/mL (0.358-3.74) Influenza Type A Antigen Negative (NEGATIVE) Influenza Type B Antigen Negative (NEGATIVE) Test 01/30/19 19:19 01/31/19 05:45 Troponin I Quantitative < 0.017 ng/mL (0.000-0.055) White Blood Count 9.1 x10^3/uL (4.0-11.0) Red Blood Count 3.59 x10^6/uL (3.50-5.40) Hemoglobin 11.6 g/dL (12.0-15.5) L Hematocrit 32.7 % (36.0-47.0) L Mean Corpuscular Volume 91 fL (79-100) Mean Corpuscular Hemoglobin 32 pg (25-35) Mean Corpuscular Hemoglobin Concent 35 g/dL (31-37) Red Cell Distribution Width 12.1 % (11.5-14.5) Platelet Count 236 x10^3/uL (140-400) Neutrophils (%) (Auto) 69 % (31-73) Lymphocytes (%) (Auto) 21 % (24-48) L Monocytes (%) (Auto) 8 % (0-9) Eosinophils (%) (Auto) 1 % (0-3) Basophils (%) (Auto) 0 % (0-3) Neutrophils # (Auto) 6.3 x10^3/uL (1.8-7.7) Lymphocytes # (Auto) 1.9 x10^3/uL (1.0-4.8) Monocytes # (Auto) 0.7 x10^3/uL (0.0-1.1) Eosinophils # (Auto) 0.1 x10^3/uL (0.0-0.7) Basophils # (Auto) 0.0 x10^3/uL (0.0-0.2) Sodium Level 140 mmol/L (136-145) Potassium Level 4.2 mmol/L (3.5-5.1) Chloride Level 103 mmol/L (98-107) Carbon Dioxide Level 30 mmol/L (21-32) Anion Gap 7 (6-14) Blood Urea Nitrogen 11 mg/dL (7-20) Creatinine 0.7 mg/dL (0.6-1.0) Estimated GFR (Cockcroft-Gault) 83.7 Glucose Level 109 mg/dL (70-99) H Calcium Level 8.8 mg/dL (8.5-10.1) Laboratory Tests 01/30/19 13:05 01/31/19 05:45 Laboratory Tests 01/30/19 13:05 01/31/19 05:45 ASSESSMENT/PLAN ASSESSMENT/PLAN 1. Pleuritic CP: doubt ACS 2. Possible pneumonia with underlying COPD 3. Tobaccoism 4. HTN: controlled, on home lisinopril Recommendations 1. TTE, lipids. 2. Consult pulmonary 3. Continue home BP regimen. ANGEL ZIEGLER APRN Jan 31, 2019 10:50
--- NOTE | 2019-01-31 11:00 | NUR ---
SS following for discharge planning. SS reviewed pt chart. Pt is from home and is currently on room air. SS will continue to follow for discharge planning.
[2019-01-31 11:09] LABS: CHOLESTEROL/HDL RATIO 3.2
[2019-01-31 11:18] VITALS: BP 105/51
[2019-01-31] MEDS: LACTOBACILLUS RHAMNOSUS GG 1 CAPSULE. PO SCH ×2 (12:22→22:02)
[2019-01-31 15:00] VITALS: BP 113/53
--- NOTE | 2019-01-31 15:22 | PDOC ---
PULMONARY PROGRESS NOTES Vitals Vital Signs Date Time Temp Pulse Resp B/P (MAP) Pulse Ox O2 Delivery O2 Flow Rate FiO2 01/31/19 11:18 97.8 82 18 105/51 (69) 97 Room Air 97.8 Labs Laboratory Tests Test 01/30/19 12:13 01/30/19 13:05 01/30/19 16:30 01/30/19 18:48 Urine Color Yellow Urine Clarity Clear Urine pH 6.0 Urine Specific [place] 1.015 Urine Protein Negative mg/dL (NEG-TRACE) Urine Glucose (UA) Negative mg/dL (NEG) Urine Ketones (Stick) Negative mg/dL (NEG) Urine Blood Negative (NEG) Urine Nitrite Negative (NEG) Urine Bilirubin Negative (NEG) Urine Urobilinogen Dipstick 1.0 mg/dL (0.2 mg/dL) Urine Leukocyte Esterase Negative (NEG) Urine RBC 0 /HPF (0-2) Urine WBC Occ /HPF (0-4) Urine Squamous Epithelial Cells Occ /LPF Urine Bacteria 0 /HPF (0-FEW) Urine Mucus Slight /LPF Urine Opiates Screen Neg (NEG) Urine Methadone Screen Neg (NEG) Urine Barbiturates Neg (NEG) Urine Phencyclidine Screen Neg (NEG) Urine Amphetamine/Methamphetamine Neg (NEG) Urine Benzodiazepines Screen Neg (NEG) Urine Cocaine Screen Neg (NEG) Urine Cannabinoids Screen Neg (NEG) Urine Ethyl Alcohol Neg (NEG) White Blood Count 9.7 x10^3/uL (4.0-11.0) Red Blood Count 3.72 x10^6/uL (3.50-5.40) Hemoglobin 12.1 g/dL (12.0-15.5) Hematocrit 34.0 % (36.0-47.0) Mean Corpuscular Volume 91 fL (79-100) Mean Corpuscular Hemoglobin 33 pg (25-35) Mean Corpuscular Hemoglobin Concent 36 g/dL (31-37) Red Cell Distribution Width 12.4 % (11.5-14.5) Platelet Count 237 x10^3/uL (140-400) Neutrophils (%) (Auto) 71 % (31-73) Lymphocytes (%) (Auto) 20 % (24-48) Monocytes (%) (Auto) 7 % (0-9) Eosinophils (%) (Auto) 1 % (0-3) Basophils (%) (Auto) 0 % (0-3) Neutrophils # (Auto) 6.9 x10^3/uL (1.8-7.7) Lymphocytes # (Auto) 2.0 x10^3/uL (1.0-4.8) Monocytes # (Auto) 0.7 x10^3/uL (0.0-1.1) Eosinophils # (Auto) 0.1 x10^3/uL (0.0-0.7) Basophils # (Auto) 0.0 x10^3/uL (0.0-0.2) D-Dimer (Rebeka) 1.03 ug/mlFEU (0.00-0.50) Sodium Level 140 mmol/L (136-145) Potassium Level 4.1 mmol/L (3.5-5.1) Chloride Level 102 mmol/L (98-107) Carbon Dioxide Level 31 mmol/L (21-32) Anion Gap 7 (6-14) Blood Urea Nitrogen 11 mg/dL (7-20) Creatinine 0.6 mg/dL (0.6-1.0) Estimated GFR (Cockcroft-Gault) 100.0 BUN/Creatinine Ratio 18 (6-20) Glucose Level 116 mg/dL (70-99) Calcium Level 9.3 mg/dL (8.5-10.1) Magnesium Level 2.0 mg/dL (1.8-2.4) Total Bilirubin 0.6 mg/dL (0.2-1.0) Aspartate Amino Transf (AST/SGOT) 14 U/L (15-37) Alanine Aminotransferase (ALT/SGPT) 13 U/L (14-59) Alkaline Phosphatase 64 U/L (46-116) Creatine Kinase 47 U/L (26-192) Creatine Kinase MB (Mass) 0.6 ng/mL (0.0-3.6) Creatine Kinase MB Relative Index % (0-4) Troponin I Quantitative < 0.017 ng/mL (0.000-0.055) < 0.017 ng/mL (0.000-0.055) NK-Bnb-K-Type Natriuretic Peptide 244 pg/mL (0-124) Total Protein 7.0 g/dL (6.4-8.2) Albumin 3.4 g/dL (3.4-5.0) Albumin/Globulin Ratio 0.9 (1.0-1.7) Thyroid Stimulating Hormone (TSH) 0.620 uIU/mL (0.358-3.74) Influenza Type A Antigen Negative (NEGATIVE) Influenza Type B Antigen Negative (NEGATIVE) Test 01/30/19 19:19 01/31/19 05:45 Troponin I Quantitative < 0.017 ng/mL (0.000-0.055) White Blood Count 9.1 x10^3/uL (4.0-11.0) Red Blood Count 3.59 x10^6/uL (3.50-5.40) Hemoglobin 11.6 g/dL (12.0-15.5) Hematocrit 32.7 % (36.0-47.0) Mean Corpuscular Volume 91 fL (79-100) Mean Corpuscular Hemoglobin 32 pg (25-35) Mean Corpuscular Hemoglobin Concent 35 g/dL (31-37) Red Cell Distribution Width 12.1 % (11.5-14.5) Platelet Count 236 x10^3/uL (140-400) Neutrophils (%) (Auto) 69 % (31-73) Lymphocytes (%) (Auto) 21 % (24-48) Monocytes (%) (Auto) 8 % (0-9) Eosinophils (%) (Auto) 1 % (0-3) Basophils (%) (Auto) 0 % (0-3) Neutrophils # (Auto) 6.3 x10^3/uL (1.8-7.7) Lymphocytes # (Auto) 1.9 x10^3/uL (1.0-4.8) Monocytes # (Auto) 0.7 x10^3/uL (0.0-1.1) Eosinophils # (Auto) 0.1 x10^3/uL (0.0-0.7) Basophils # (Auto) 0.0 x10^3/uL (0.0-0.2) Sodium Level 140 mmol/L (136-145) Potassium Level 4.2 mmol/L (3.5-5.1) Chloride Level 103 mmol/L (98-107) Carbon Dioxide Level 30 mmol/L (21-32) Anion Gap 7 (6-14) Blood Urea Nitrogen 11 mg/dL (7-20) Creatinine 0.7 mg/dL (0.6-1.0) Estimated GFR (Cockcroft-Gault) 83.7 Glucose Level 109 mg/dL (70-99) Calcium Level 8.8 mg/dL (8.5-10.1) Triglycerides Level 58 mg/dL (0-150) Cholesterol Level 150 mg/dL (0-200) LDL Cholesterol, Calculated 91 mg/dL (0-100) VLDL Cholesterol, Calculated 12 mg/dL (0-40) Non-HDL Cholesterol Calculated 103 mg/dL (0-129) HDL Cholesterol 47 mg/dL (40-60) Cholesterol/HDL Ratio 3.2 Laboratory Tests Test 01/30/19 16:30 01/30/19 18:48 01/30/19 19:19 01/31/19 05:45 Troponin I Quantitative < 0.017 ng/mL (0.000-0.055) < 0.017 ng/mL (0.000-0.055) Influenza Type A Antigen Negative (NEGATIVE) Influenza Type B Antigen Negative (NEGATIVE) White Blood Count 9.1 x10^3/uL (4.0-11.0) Red Blood Count 3.59 x10^6/uL (3.50-5.40) Hemoglobin 11.6 g/dL (12.0-15.5) Hematocrit 32.7 % (36.0-47.0) Mean Corpuscular Volume 91 fL (79-100) Mean Corpuscular Hemoglobin 32 pg (25-35) Mean Corpuscular Hemoglobin Concent 35 g/dL (31-37) Red Cell Distribution Width 12.1 % (11.5-14.5) Platelet Count 236 x10^3/uL (140-400) Neutrophils (%) (Auto) 69 % (31-73) Lymphocytes (%) (Auto) 21 % (24-48) Monocytes (%) (Auto) 8 % (0-9) Eosinophils (%) (Auto) 1 % (0-3) Basophils (%) (Auto) 0 % (0-3) Neutrophils # (Auto) 6.3 x10^3/uL (1.8-7.7) Lymphocytes # (Auto) 1.9 x10^3/uL (1.0-4.8) Monocytes # (Auto) 0.7 x10^3/uL (0.0-1.1) Eosinophils # (Auto) 0.1 x10^3/uL (0.0-0.7) Basophils # (Auto) 0.0 x10^3/uL (0.0-0.2) Sodium Level 140 mmol/L (136-145) Potassium Level 4.2 mmol/L (3.5-5.1) Chloride Level 103 mmol/L (98-107) Carbon Dioxide Level 30 mmol/L (21-32) Anion Gap 7 (6-14) Blood Urea Nitrogen 11 mg/dL (7-20) Creatinine 0.7 mg/dL (0.6-1.0) Estimated GFR (Cockcroft-Gault) 83.7 Glucose Level 109 mg/dL (70-99) Calcium Level 8.8 mg/dL (8.5-10.1) Triglycerides Level 58 mg/dL (0-150) Cholesterol Level 150 mg/dL (0-200) LDL Cholesterol, Calculated 91 mg/dL (0-100) VLDL Cholesterol, Calculated 12 mg/dL (0-40) Non-HDL Cholesterol Calculated 103 mg/dL (0-129) HDL Cholesterol 47 mg/dL (40-60) Cholesterol/HDL Ratio 3.2 Medications Active Scripts Medications Dose Route/Sig Max Daily Dose Days Date Category Zyrtec (Cetirizine Hcl) 10 Mg Tablet 10 Mg PO DAILY 01/30/19 Reported Tizanidine Hcl 4 Mg Tablet 1 Tab PO QHS PRN 01/30/19 Reported Potassium Chloride 10 Meq Tab.sr.24h 10 Meq PO DAILY 01/30/19 Reported Montelukast Sodium Tablet (Montelukast Sodium) 10 Mg Tablet 10 Mg PO HS 01/30/19 Reported Mag-Oxide (Magnesium Oxide) 400 Mg Tablet 400 Mg PO DAILY 01/30/19 Reported Lisinopril 40 Mg Tablet 40 Mg PO DAILY 01/30/19 Reported Gabapentin 600 Mg Tablet 300 Mg PO BID 01/30/19 Reported Flonase Allergy Relief (Fluticasone Propionate) 9.9 Ml [place].susp 2 Sprays NS DAILY 01/30/19 Reported Vitamin B-12 (Cyanocobalamin (Vitamin B-12)) 1,000 Mcg Tablet 5,000 Mcg PO DAILY 01/30/19 Reported Citalopram Hbr (Citalopram Hydrobromide) 20 Mg Tablet 20 Mg PO DAILY 01/30/19 Reported Impression . FULL NOTE DICTATED I CONCUR WITH CURRENT RX FOR PNEUMONIA FOLLOW UP CT IN 8 BORA Olvera/C SMOKING THANKS MISTY HARTMANN MD Jan 31, 2019 15:22
[2019-01-31] MEDS: ENOXAPARIN 40 MG/0.4 ML SYRINGE. SQ SCH (17:43)
[2019-01-31 19:45] VITALS: BP 121/58
[2019-01-31] MEDS: MONTELUKAST SODIUM 10 MG TABLET. PO SCH (22:02)
[2019-01-31 23:05] VITALS: BP 150/67
--- NOTE | 2019-02-01 01:17 | CONS ---
DATE OF CONSULTATION: 01/31/2019 REASON FOR CONSULTATION: The patient seen in pulmonary consultation at the request of Dr. Maldonado for abnormal CT chest. HISTORY OF PRESENT ILLNESS: The patient is 64 years old who has been sick at home for approximately a week. Last week ago, she had chills and fever, could not get warm. She presented as a consequence of some chest discomfort, unable to take in a deep breath and cough, mostly nonproductive. She was evaluated in the Emergency Room with a CT angiogram that showed no evidence of pulmonary emboli. There was evidence of right and left opacities with surrounding ground glass opacities. The patient is currently being treated for pneumonia. I was asked to see her in consultation. She does smoke and states that she is not going to return to smoking once she is discharged from the hospital. PAST MEDICAL HISTORY: Remarkable for hypertension; depression; anxiety; allergic rhinitis; Nance's palsy; COPD, unknown FEV1; obesity. PAST SURGICAL HISTORY: Status post cholecystectomy. ALLERGIES: ERYTHROMYCIN. MEDICATIONS: List was reviewed. FAMILY HISTORY: Brother had carcinoma of the lung with metastases. Father had pancreatic cancer. Mother and sister with hypertension. SOCIAL HISTORY: She continues to smoke and did so up until the day of admission. No history of alcoholism. She worked for [employer]. REVIEW OF SYSTEMS: As indicated above; otherwise, a 10-point system was reviewed and negative. CONSTITUTIONAL: Subjective fever. EYES: No change in visual acuity. HENT: No nasal congestion or sore throat. PULMONARY: As indicated above. CARDIOVASCULAR: As indicated above. GASTROINTESTINAL: No nausea, vomiting, diarrhea. GENITOURINARY: No dysuria or frequency. MUSCULOSKELETAL: No localized muscle aches or joint pains. SKIN: No new skin lesions. NEUROLOGIC: No headaches, diplopia or blurred vision. PHYSICAL EXAMINATION: VITAL SIGNS: Stable. O2 saturation was greater than 92%, currently on 2 liters. HEENT: Eyes, the sclerae were nonicteric. NECK: Jugular venous distention was not elevated. No lymphadenopathy. CHEST: Full expansion. LUNGS: Adequate airway flow with some scattered rhonchi and expiratory wheeze. CARDIOVASCULAR: Regular rate and rhythm with S1, S2, no S3. ABDOMEN: Soft, nontender, nondistended. EXTREMITIES: No clubbing, cyanosis or pitting edema. NEUROLOGICAL: The patient was awake, alert, following commands. A detailed neuro exam was not performed. LABORATORY DATA: Serology was negative for influenza. UA was negative. Toxicology screen was negative. Electrolytes were noted. White count was normal. CT angiogram as indicated above revealing no evidence of pulmonary emboli. IMPRESSION: 1. Abnormal CT chest revealing left upper lobe mass with surrounding ground glass opacities along with a right upper lobe mass. 2. Suspect pneumonia, gram-negative, possibly gram-positive. 3. Acute exacerbation of chronic obstructive pulmonary disease. 4. Chest pain secondary to above/pleurisy. Workup in progress per Cardiology. 5. Tobacco abuse. 6. Hypertension. 7. Obesity. 8. Other comorbidities including allergic rhinitis, depression, anxiety. PLAN: I went over the above findings with the patient. Clinically, I think that this is all related to an infectious process, with that being said, malignancy is certainly in the differential diagnosis. I recommend treatment for pneumonia. CT followup in [address] scan reveals continued opacity, she may require a fine needle aspiration. I did go over the above with the patient. She is understanding that there is certainly a possibility that the CT scan findings may be related to a malignancy. She did promise me that she would stop smoking. Once she is discharged, she will undergo a 6-minute walk, outpatient PFTs. I do appreciate the privilege in sharing in the patient's care. MISTY HARTMANN MD DR: DEREK/stephan JOB#: [id number] / [id number]
[2019-02-01 03:40] VITALS: BP 147/67
[2019-02-01 04:34] LABS: BASO % 1 % (0-3); EOS # 0.1 x10^3/uL (0.0-0.7); EOS % 2 % (0-3); HEMATOCRIT 31.2 % (36.0-47.0); HEMOGLOBIN 10.9 g/dL (12.0-15.5); LYMPH # 1.9 x10^3/uL (1.0-4.8); LYMPH % 28 % (24-48); MEAN CORPUSCULAR HEMOGLOBIN 32 pg (25-35); MEAN CORPUSCULAR HGB CONC 35 g/dL (31-37); MEAN CORPUSCULAR VOLUME 92 fL (79-100); MONO # 0.6 x10^3/uL (0.0-1.1); MONO % 9 % (0-9); NEUT # 4.1 x10^3/uL (1.8-7.7); NEUT % 61 % (31-73); PLATELET COUNT 244 x10^3/uL (140-400); RED CELL DISTRIBUTION WIDTH 12.2 % (11.5-14.5); WHITE BLOOD COUNT 6.7 x10^3/uL (4.0-11.0)
[2019-02-01 04:53] LABS: CALCIUM 8.8 mg/dL (8.5-10.1); CREATININE 0.8 mg/dL (0.6-1.0); GFR 71.8; POTASSIUM 4.2 mmol/L (3.5-5.1)
[2019-02-01] MEDS: IPRATRPIUM/ALBUTEROL 0.5/2.5MG 3 ML NEBU. NEB SCH ×3 (07:19→15:26)
[2019-02-01 07:25] VITALS: BP 122/55
--- NOTE | 2019-02-01 09:16 | PDOC ---
PULMONARY PROGRESS NOTES Subjective PT BETTER TODAY LESS SOA Vitals Vital Signs Date Time Temp Pulse Resp B/P (MAP) Pulse Ox O2 Delivery O2 Flow Rate FiO2 02/01/19 07:25 97.5 72 18 122/55 (77) 93 Room Air 97.5 ROS: No Nausea, No Chest Pain, No Abdominal Pain, No Increase Cough General: Alert Lungs: Clear Cardiovascular: S1, S2 Abdomen: Soft Neuro Exam: Alert Extremities: No Edema Skin: Warm Labs Laboratory Tests Test 01/30/19 12:13 01/30/19 13:05 01/30/19 16:30 01/30/19 18:48 Urine Color Yellow Urine Clarity Clear Urine pH 6.0 Urine Specific [place] 1.015 Urine Protein Negative mg/dL (NEG-TRACE) Urine Glucose (UA) Negative mg/dL (NEG) Urine Ketones (Stick) Negative mg/dL (NEG) Urine Blood Negative (NEG) Urine Nitrite Negative (NEG) Urine Bilirubin Negative (NEG) Urine Urobilinogen Dipstick 1.0 mg/dL (0.2 mg/dL) Urine Leukocyte Esterase Negative (NEG) Urine RBC 0 /HPF (0-2) Urine WBC Occ /HPF (0-4) Urine Squamous Epithelial Cells Occ /LPF Urine Bacteria 0 /HPF (0-FEW) Urine Mucus Slight /LPF Urine Opiates Screen Neg (NEG) Urine Methadone Screen Neg (NEG) Urine Barbiturates Neg (NEG) Urine Phencyclidine Screen Neg (NEG) Urine Amphetamine/Methamphetamine Neg (NEG) Urine Benzodiazepines Screen Neg (NEG) Urine Cocaine Screen Neg (NEG) Urine Cannabinoids Screen Neg (NEG) Urine Ethyl Alcohol Neg (NEG) White Blood Count 9.7 x10^3/uL (4.0-11.0) Red Blood Count 3.72 x10^6/uL (3.50-5.40) Hemoglobin 12.1 g/dL (12.0-15.5) Hematocrit 34.0 % (36.0-47.0) Mean Corpuscular Volume 91 fL (79-100) Mean Corpuscular Hemoglobin 33 pg (25-35) Mean Corpuscular Hemoglobin Concent 36 g/dL (31-37) Red Cell Distribution Width 12.4 % (11.5-14.5) Platelet Count 237 x10^3/uL (140-400) Neutrophils (%) (Auto) 71 % (31-73) Lymphocytes (%) (Auto) 20 % (24-48) Monocytes (%) (Auto) 7 % (0-9) Eosinophils (%) (Auto) 1 % (0-3) Basophils (%) (Auto) 0 % (0-3) Neutrophils # (Auto) 6.9 x10^3/uL (1.8-7.7) Lymphocytes # (Auto) 2.0 x10^3/uL (1.0-4.8) Monocytes # (Auto) 0.7 x10^3/uL (0.0-1.1) Eosinophils # (Auto) 0.1 x10^3/uL (0.0-0.7) Basophils # (Auto) 0.0 x10^3/uL (0.0-0.2) D-Dimer (Rebeka) 1.03 ug/mlFEU (0.00-0.50) Sodium Level 140 mmol/L (136-145) Potassium Level 4.1 mmol/L (3.5-5.1) Chloride Level 102 mmol/L (98-107) Carbon Dioxide Level 31 mmol/L (21-32) Anion Gap 7 (6-14) Blood Urea Nitrogen 11 mg/dL (7-20) Creatinine 0.6 mg/dL (0.6-1.0) Estimated GFR (Cockcroft-Gault) 100.0 BUN/Creatinine Ratio 18 (6-20) Glucose Level 116 mg/dL (70-99) Calcium Level 9.3 mg/dL (8.5-10.1) Magnesium Level 2.0 mg/dL (1.8-2.4) Total Bilirubin 0.6 mg/dL (0.2-1.0) Aspartate Amino Transf (AST/SGOT) 14 U/L (15-37) Alanine Aminotransferase (ALT/SGPT) 13 U/L (14-59) Alkaline Phosphatase 64 U/L (46-116) Creatine Kinase 47 U/L (26-192) Creatine Kinase MB (Mass) 0.6 ng/mL (0.0-3.6) Creatine Kinase MB Relative Index % (0-4) Troponin I Quantitative < 0.017 ng/mL (0.000-0.055) < 0.017 ng/mL (0.000-0.055) TZ-Rwj-O-Type Natriuretic Peptide 244 pg/mL (0-124) Total Protein 7.0 g/dL (6.4-8.2) Albumin 3.4 g/dL (3.4-5.0) Albumin/Globulin Ratio 0.9 (1.0-1.7) Thyroid Stimulating Hormone (TSH) 0.620 uIU/mL (0.358-3.74) Influenza Type A Antigen Negative (NEGATIVE) Influenza Type B Antigen Negative (NEGATIVE) Test 01/30/19 19:19 01/31/19 05:45 02/01/19 04:20 Troponin I Quantitative < 0.017 ng/mL (0.000-0.055) White Blood Count 9.1 x10^3/uL (4.0-11.0) 6.7 x10^3/uL (4.0-11.0) Red Blood Count 3.59 x10^6/uL (3.50-5.40) 3.40 x10^6/uL (3.50-5.40) Hemoglobin 11.6 g/dL (12.0-15.5) 10.9 g/dL (12.0-15.5) Hematocrit 32.7 % (36.0-47.0) 31.2 % (36.0-47.0) Mean Corpuscular Volume 91 fL (79-100) 92 fL (79-100) Mean Corpuscular Hemoglobin 32 pg (25-35) 32 pg (25-35) Mean Corpuscular Hemoglobin Concent 35 g/dL (31-37) 35 g/dL (31-37) Red Cell Distribution Width 12.1 % (11.5-14.5) 12.2 % (11.5-14.5) Platelet Count 236 x10^3/uL (140-400) 244 x10^3/uL (140-400) Neutrophils (%) (Auto) 69 % (31-73) 61 % (31-73) Lymphocytes (%) (Auto) 21 % (24-48) 28 % (24-48) Monocytes (%) (Auto) 8 % (0-9) 9 % (0-9) Eosinophils (%) (Auto) 1 % (0-3) 2 % (0-3) Basophils (%) (Auto) 0 % (0-3) 1 % (0-3) Neutrophils # (Auto) 6.3 x10^3/uL (1.8-7.7) 4.1 x10^3/uL (1.8-7.7) Lymphocytes # (Auto) 1.9 x10^3/uL (1.0-4.8) 1.9 x10^3/uL (1.0-4.8) Monocytes # (Auto) 0.7 x10^3/uL (0.0-1.1) 0.6 x10^3/uL (0.0-1.1) Eosinophils # (Auto) 0.1 x10^3/uL (0.0-0.7) 0.1 x10^3/uL (0.0-0.7) Basophils # (Auto) 0.0 x10^3/uL (0.0-0.2) 0.0 x10^3/uL (0.0-0.2) Sodium Level 140 mmol/L (136-145) 143 mmol/L (136-145) Potassium Level 4.2 mmol/L (3.5-5.1) 4.2 mmol/L (3.5-5.1) Chloride Level 103 mmol/L (98-107) 106 mmol/L (98-107) Carbon Dioxide Level 30 mmol/L (21-32) 30 mmol/L (21-32) Anion Gap 7 (6-14) 7 (6-14) Blood Urea Nitrogen 11 mg/dL (7-20) 14 mg/dL (7-20) Creatinine 0.7 mg/dL (0.6-1.0) 0.8 mg/dL (0.6-1.0) Estimated GFR (Cockcroft-Gault) 83.7 71.8 Glucose Level 109 mg/dL (70-99) 105 mg/dL (70-99) Calcium Level 8.8 mg/dL (8.5-10.1) 8.8 mg/dL (8.5-10.1) Triglycerides Level 58 mg/dL (0-150) Cholesterol Level 150 mg/dL (0-200) LDL Cholesterol, Calculated 91 mg/dL (0-100) VLDL Cholesterol, Calculated 12 mg/dL (0-40) Non-HDL Cholesterol Calculated 103 mg/dL (0-129) HDL Cholesterol 47 mg/dL (40-60) Cholesterol/HDL Ratio 3.2 Laboratory Tests Test 02/01/19 04:20 White Blood Count 6.7 x10^3/uL (4.0-11.0) Red Blood Count 3.40 x10^6/uL (3.50-5.40) Hemoglobin 10.9 g/dL (12.0-15.5) Hematocrit 31.2 % (36.0-47.0) Mean Corpuscular Volume 92 fL (79-100) Mean Corpuscular Hemoglobin 32 pg (25-35) Mean Corpuscular Hemoglobin Concent 35 g/dL (31-37) Red Cell Distribution Width 12.2 % (11.5-14.5) Platelet Count 244 x10^3/uL (140-400) Neutrophils (%) (Auto) 61 % (31-73) Lymphocytes (%) (Auto) 28 % (24-48) Monocytes (%) (Auto) 9 % (0-9) Eosinophils (%) (Auto) 2 % (0-3) Basophils (%) (Auto) 1 % (0-3) Neutrophils # (Auto) 4.1 x10^3/uL (1.8-7.7) Lymphocytes # (Auto) 1.9 x10^3/uL (1.0-4.8) Monocytes # (Auto) 0.6 x10^3/uL (0.0-1.1) Eosinophils # (Auto) 0.1 x10^3/uL (0.0-0.7) Basophils # (Auto) 0.0 x10^3/uL (0.0-0.2) Sodium Level 143 mmol/L (136-145) Potassium Level 4.2 mmol/L (3.5-5.1) Chloride Level 106 mmol/L (98-107) Carbon Dioxide Level 30 mmol/L (21-32) Anion Gap 7 (6-14) Blood Urea Nitrogen 14 mg/dL (7-20) Creatinine 0.8 mg/dL (0.6-1.0) Estimated GFR (Cockcroft-Gault) 71.8 Glucose Level 105 mg/dL (70-99) Calcium Level 8.8 mg/dL (8.5-10.1) Medications Active Scripts Medications Dose Route/Sig Max Daily Dose Days Date Category Zyrtec (Cetirizine Hcl) 10 Mg Tablet 10 Mg PO DAILY 01/30/19 Reported Tizanidine Hcl 4 Mg Tablet 1 Tab PO QHS PRN 01/30/19 Reported Potassium Chloride 10 Meq Tab.sr.24h 10 Meq PO DAILY 01/30/19 Reported Montelukast Sodium Tablet (Montelukast Sodium) 10 Mg Tablet 10 Mg PO HS 01/30/19 Reported Mag-Oxide (Magnesium Oxide) 400 Mg Tablet 400 Mg PO DAILY 01/30/19 Reported Lisinopril 40 Mg Tablet 40 Mg PO DAILY 01/30/19 Reported Gabapentin 600 Mg Tablet 300 Mg PO BID 01/30/19 Reported Flonase Allergy Relief (Fluticasone Propionate) 9.9 Ml [place].susp 2 Sprays NS DAILY 01/30/19 Reported Vitamin B-12 (Cyanocobalamin (Vitamin B-12)) 1,000 Mcg Tablet 5,000 Mcg PO DAILY 01/30/19 Reported Citalopram Hbr (Citalopram Hydrobromide) 20 Mg Tablet 20 Mg PO DAILY 01/30/19 Reported Impression . IMPRESSION: 1. Abnormal CT chest revealing left upper lobe mass with surrounding ground glass opacities along with a right upper lobe mass. 2. Suspect pneumonia, gram-negative, possibly gram-positive. 3. Acute exacerbation of chronic obstructive pulmonary disease. 4. Chest pain secondary to above/pleurisy. 5. Tobacco abuse. 6. Hypertension. 7. Obesity. 8. Other comorbidities including allergic rhinitis, depression, anxiety. Plan . HOME TODAY FOLLOW UP IN MY OFFICE IN APR CT CHEST IN MAR I SPOKE WITH MY STAFF PT INSTRUCTED TO CALL MY OFFICE IF SHE NO BETTER IN THE NEXT 2-3 WEEKS TO SEE NEXT WEEK I went over the above findings with the patient. Clinically, I think that this is all related to an infectious process, with that being said, malignancy is certainly in the differential diagnosis. I recommend treatment for pneumonia. CT followup in [address] scan reveals continued opacity, she may require a fine needle aspiration. I did go over the above with the patient. She is understanding that there is certainly a possibility that the CT scan findings may be related to a malignancy. MISTY HARTMANN MD Feb 01, 2019 09:16
[2019-02-01] MEDS: FLUTICASONE 50MCG/NASAL SPRAY 16GM BOTTLE. NS SCH (09:20)
[2019-02-01] MEDS: CYANOCOBALAMIN (VITAMIN B-12) 1,000 MCG TABLET. PO SCH (09:20)
[2019-02-01] MEDS: MAGNESIUM OXIDE 400 MG TABLET PO SCH (09:20)
[2019-02-01] MEDS: LACTOBACILLUS RHAMNOSUS GG 1 CAPSULE. PO SCH (09:20)
[2019-02-01] MEDS: GABAPENTIN 300 MG CAPSULE. PO SCH (09:21)
[2019-02-01] MEDS: CETIRIZINE HCL 10 MG TABLET. PO SCH (09:21)
[2019-02-01] MEDS: CITALOPRAM 20 MG TABLET. PO SCH (09:21)
[2019-02-01] MEDS: cefTRIAXone IV Push 1 GM VIAL. IVP SCH (09:22)
--- NOTE | 2019-02-01 09:59 | PDOC3 ---
IM DISCHARGE SUMMARY Date of Admission Date of Admission Date of Admission: Jan 30, 2019 at 15:46 Date of Discharge Date of Discharge February 01, 2019 Consults Consults Maynor Garcia MD; Darryn Bonilla MD Labs Labs Laboratory Tests Test 02/01/19 04:20 White Blood Count 6.7 x10^3/uL (4.0-11.0) Red Blood Count 3.40 x10^6/uL (3.50-5.40) L Hemoglobin 10.9 g/dL (12.0-15.5) L Hematocrit 31.2 % (36.0-47.0) L Mean Corpuscular Volume 92 fL (79-100) Mean Corpuscular Hemoglobin 32 pg (25-35) Mean Corpuscular Hemoglobin Concent 35 g/dL (31-37) Red Cell Distribution Width 12.2 % (11.5-14.5) Platelet Count 244 x10^3/uL (140-400) Neutrophils (%) (Auto) 61 % (31-73) Lymphocytes (%) (Auto) 28 % (24-48) Monocytes (%) (Auto) 9 % (0-9) Eosinophils (%) (Auto) 2 % (0-3) Basophils (%) (Auto) 1 % (0-3) Neutrophils # (Auto) 4.1 x10^3/uL (1.8-7.7) Lymphocytes # (Auto) 1.9 x10^3/uL (1.0-4.8) Monocytes # (Auto) 0.6 x10^3/uL (0.0-1.1) Eosinophils # (Auto) 0.1 x10^3/uL (0.0-0.7) Basophils # (Auto) 0.0 x10^3/uL (0.0-0.2) Sodium Level 143 mmol/L (136-145) Potassium Level 4.2 mmol/L (3.5-5.1) Chloride Level 106 mmol/L (98-107) Carbon Dioxide Level 30 mmol/L (21-32) Anion Gap 7 (6-14) Blood Urea Nitrogen 14 mg/dL (7-20) Creatinine 0.8 mg/dL (0.6-1.0) Estimated GFR (Cockcroft-Gault) 71.8 Glucose Level 105 mg/dL (70-99) H Calcium Level 8.8 mg/dL (8.5-10.1) Laboratory Tests 02/01/19 04:20 Laboratory Tests 02/01/19 04:20 Brief hospital course Brief hospital course This is a 64-year-old female started having chest pain, since last night. The pain is worse with deep breathing and it is in the left upper chest. The patient also was feeling very cold for the last 3 days prior to this episode. She denies any chills, fever, nausea, vomiting, heartburn, abdominal pain, dyspnea, dizziness or diaphoresis. She denies any palpitations. Because of the persistent chest pain, she came to the Emergency Room. In the Emergency Room, WBC count was 9.7, hemoglobin 12.1. Sodium 140, potassium 4.1, BUN 11, creatinine 0.6. BNP was 244, albumin 3.4. Troponin levels were less than 0.017. CK 47, CK-MB 0.6. TSH 0.620. Urine drug screen was negative. Urinalysis was negative. D-dimer was 1.03. WBC count 9.7, hemoglobin 12.1, polys 71. Chest x-ray was unremarkable for any acute changes, but the CTA of the chest showed left upper lobe mass-like consolidation with adjacent ground-glass opacities, may represent pneumonia or inflammatory process. Additional nodular opacities within the right middle, right lower and left lower lobe may relate to infectious or inflammatory process, mildly prominent mediastinal lymph nodes, likely reactive. Because of the chest pain, possible pneumonia and lung mass, the patient was admitted for further evaluation and management. For more details regarding the past history, family history, social history, surgical history and other details, please refer to History and Physical. The patient is started on IV Rocephin. We will consult Dr. Bonilla for pulmonary evaluation and management. Consult Dr. Garcia for cardiology evaluation and management. Recheck labs in a.m. Order influenza A and B test, order Lovenox subcutaneously for DVT prophylaxis. For details, please refer to the orders. Clinically patient is improving. I'll discontinue IV Rocephin and change it to cefdinir 300 mg twice a day for 10 days. If it is okay with the leather cartridge belt maker and the the swimming pool service technician will discharge patient today. Echocardiogram is pendi ng. Discussed with the patient about possibility of underlying lung mass and a repeat CT chest needs to be done in 8 weeks. Patient will follow-up with Dr. Bonilla in 8 weeks. I'll order ProAir HFA and Symbicort for her COPD. See me in the office in 5 days on Wednesday. She has been strongly advised to stop smoking and she states that she will not smoke. Medications Current Medications Medications (Trade) Dose Ordered Sig/Jack Route PRN Reason Start Time Stop Time Status Last Admin Dose Admin Ceftriaxone Sodium (Rocephin) 1 gm Q24H IVP 01/31/19 10:00 02/01/19 09:22 Lactobacillus Rhamnosus (Culturelle) 1 cap BID PO 01/31/19 12:00 02/01/19 09:20 Medications reviewed and reconciled for discharge. Allergy Allergies Coded Allergies Type Severity Reaction Last Updated Verified erythromycin base Allergy Mild 01/30/19 Yes Follow up in 5 days. DISPOSITION: Home Comments Discharge Management - 35 minutes. For other details please refer to discharge instructions AILIN PATEL MD Feb 01, 2019 09:58
[2019-02-01] MEDS ORDERED: ALBU2.5V8 INH (10:02)
[2019-02-01] MEDS ORDERED: BUDE10.2 IH (10:02)
[2019-02-01] MEDS ORDERED: CEFD300C PO (10:02)
--- NOTE | 2019-02-01 10:03 | DISCH ---
DISCHARGE INSTRUCTIONS Condition on Discharge Condition on Discharge: Stable Activity After Discharge Activity Instructions for Disc: Activity as tolerated Diet after Discharge Diet after Discharge: Cardiac Contacting the DRAntony after DC Call your doctor for: Concerns you may have Follow-Up Follow up with: AILIN Patel in 5 days on Wednesday Follow Up With: Dr. Bonilla in 8 weeks AILIN PATEL MD Feb 01, 2019 10:03
[2019-02-01 10:28] VITALS: BP 125/58
--- NOTE | 2019-02-01 12:45 | CARD ---
MR#: [id number] Date of Study: 02/01/2019 Ordering Physician: ANGEL ZIEGLER, Referring Physician: ANGEL ZIEGLER Tech: Lisa Paniagua RDCS APPROVED REPORT EXAM: Two-dimensional and M-mode echocardiogram with Doppler and color Doppler. Other Information Quality : AverageHR: 75bpm Rhythm : NSR INDICATION Chest Pain 2D DIMENSIONS RVDd2.9 (2.9-3.5cm)Left Atrium(2D)3.9 (1.6-4.0cm) IVSd1.1 (0.7-1.1cm)Aortic Root(2D)2.7 (2.0-3.7cm) LVDd4.7 (3.9-5.9cm)LVOT Diameter1.8 (1.8-2.4cm) PWd1.1 (0.7-1.1cm)IVSs1.5 (0.8-1.2cm) LVDs2.9 (2.5-4.0cm)FS (%) 38.8 % PWs1.5 (0.8-1.2cm)SV71.5 ml Aortic Valve AoV Peak Arias.154.6cm/sAoV VTI30.4cm AO Peak GR.9.6mmHgLVOT Peak Arias.86.5cm/s LVOT VTI 21.43cmAO Mean GR.5mmHg AILYN (VMAX)1.12it6MRT (VTI)1.86cm2 Mitral Valve MV E Xfrokqsx29.6cm/sMV DECEL [id number] MV A Oucjgmge43.7cm/sMV MDW72wl E/A Ratio1.0MVA (PHT)4.07cm2 TDI E/Lateral E'7.1E/Medial E'8.5 Pulmonary Valve PV Peak Vhtxxqga52.5cm/sPV Peak Grad.2mmHg LEFT VENTRICLE The left ventricle is normal size. There is mild concentric left ventricular hypertrophy. The left ve ntricular systolic function is normal and the ejection fraction is within normal range. The Ejection Fraction is 55-60%. There is normal LV segmental wall motion. Transmitral Doppler flow pattern is Gra de I-abnormal relaxation pattern. RIGHT VENTRICLE The right ventricle is normal size. There is normal right ventricular wall thickness. The right ventr icular systolic function is normal. ATRIA The left atrium size is normal. The right atrium size is normal. The interatrial septum is intact wit h no evidence for an atrial septal defect or patent foramen ovale as noted on 2-D or Doppler imaging. AORTIC VALVE The aortic valve is thickened but opens well. The aortic valve is trileaflet. Doppler and Color Flow revealed no significant aortic regurgitation. There is no significant aortic valvular stenosis. There is no aortic valvular vegetation. MITRAL VALVE The mitral valve is normal in structure and function. There is no evidence of mitral valve prolapse. There is no mitral valve stenosis. Doppler and Color-flow revealed trace mitral regurgitation. TRICUSPID VALVE The tricuspid valve is normal in structure and function. Doppler and Color Flow revealed trace tricus pid regurgitation. There is no tricuspid valve prolapse or vegetation. There is no tricuspid valve st enosis. PULMONIC VALVE The pulmonic valve is not well visualized. GREAT VESSELS The aortic root is normal in size. The ascending aorta is normal in size. The IVC is normal in size a nd collapses >50% with inspiration. PERICARDIAL EFFUSION There is no evidence of significant pericardial effusion. Critical Notification Critical Value: No <Conclusion> The left ventricle is normal size. The left ventricular systolic function is normal and the ejection fraction is within normal range. The Ejection Fraction is 55-60%. There is mild concentric left ventricular hypertrophy. There is no significant aortic valvular stenosis. Doppler and Color Flow revealed no significant aortic regurgitation. Doppler and Color-flow revealed trace mitral regurgitation. Doppler and Color Flow revealed trace tricuspid regurgitation. Signed by : Daniele Alicia MD Electronically Approved : 02/01/2019 12:45:15
[2019-02-01 14:18] VITALS: BP 124/58
--- NOTE | 2019-02-01 17:55 | NUR ---
Discharge Note: [facility] Discharge instructions and discharge home medications reviewed with Patient and a copy given. All questions have been answered and understanding verbalized. The following instructions and handouts were given: pneumonia, chest pain, and cardiac diet. Discontinued iv line and catheter intact. Patient discharged to home with self-care via private vehicle.
== END 2019-02-01 16:50 | disposition home or self-care (01) | DRG 178 ==
LOC: ER 11:33 → 2 SOUTH 15:46
PROVIDERS: ADMIT Internal Medicine; ATTEND Internal Medicine
DX: J15.6 Pneumonia due to other Gram-negative bacteria (principal); J44.0 Chronic obstructive pulmonary disease with (acute) lower respiratory infection; J44.1 Chronic obstructive pulmonary disease with (acute) exacerbation; E66.9 Obesity, unspecified; F17.200 Nicotine dependence, unspecified, uncomplicated; F32.9 Major depressive disorder, single episode, unspecified; F41.9 Anxiety disorder, unspecified; I10 Essential (primary) hypertension; J30.9 Allergic rhinitis, unspecified; M19.90 Unspecified osteoarthritis, unspecified site; F41.8 Other specified anxiety disorders; Z82.49 Family history of ischemic heart disease and other diseases of the circulatory system; K21.9 Gastro-esophageal reflux disease without esophagitis; Z80.0 Family history of malignant neoplasm of digestive organs; Z80.1 Family history of malignant neoplasm of trachea, bronchus and lung; Z90.49 Acquired absence of other specified parts of digestive tract; Z88.8 Allergy status to other drugs, medicaments and biological substances; Z79.899 Other long term (current) drug therapy; Z68.35 Body mass index [BMI] 35.0-35.9, adult; G60.9 Hereditary and idiopathic neuropathy, unspecified; R07.81 Pleurodynia
CPT/HCPCS: 36415; 71045; 71275; 80048; 80053; 80061; 80307; 81001; 82553; 83735; 83880; 84443; 84484; 85025; 85379; 87040; 87804; 93005; 93306; 94640; 94760; 96374; J0696; J1650; J7620; Q9967; 99285-25; G0378

== ENCOUNTER → 2019-04-07 | Outpatient (CLI) | payer BC ==
[~2019-04-07] MED LIST: ALBU2.5V8 INH; BUDE10.2 IH; CEFD300C PO; CETI10TA24 PO; CITA20TA6 PO; CYAN-25 PO; FLUT9.9S NS; GABA600T7 PO; LISI-130 PO; MAGN400T22 PO; MONT10TA49 PO; POTA10TA12 PO; TIZA4TAB2 PO
--- NOTE | 2019-04-07 15:17 | RAD ---
CT of the chest without contrast 04/07/2019 INDICATION: Follow-up areas of consolidation/nodules, most recent comparison CT January 22, 2019 TECHNIQUE: Multidetector CT imaging of the chest was performed without contrast FINDINGS: Heart size is normal. No significant pericardial effusion is identified. Mild coronary calcification appears to be present. There are scattered small mediastinal lymph nodes noted the appearance of which is less prominent than on comparison study. Partial calcification of subcarinal lymph node noted. No pneumothorax, effusion, or new focal infiltrate is seen. Interval near-total resolution of the previously seen consolidation in the left upper lobe, and right upper lobe. Minimal residual groundglass opacity persists. 4 mm noncalcified nodule in the right lower lobe is unchanged (sagittal image 62). Decreasing mediastinal lymphadenopathy is also noted. Findings are suggestive of a resolving inflammatory/infectious process. No acute abnormalities involving the visualized portions of the upper abdomen are seen. No acute osseous changes are seen. IMPRESSION: 1. Interval near-total resolution of the previously seen consolidation in the left upper lobe, and right upper lobe. With associated decreasing mediastinal lymphadenopathy Findings are suggestive of a resolving inflammatory/infectious process. 2. Grossly unchanged 4 mm noncalcified nodule, right lower lobe [address] surveillance to ensure two-year stability. CT DOSING PQRS STATEMENT: One or more of the following individualized dose reduction techniques were utilized for this examination: 1. Automated exposure control 2. Adjustment of the mA and/or kV according to patient size 3. Use of iterative reconstruction technique Electronically signed by: Alexis Branham MD (04/07/2019 3:14 PM) [id number]
== END | disposition home or self-care (01) ==
LOC: CT 11:30
PROVIDERS: ATTEND Internal Medicine Pulmonary Disease
DX: I25.10 Atherosclerotic heart disease of native coronary artery without angina pectoris (principal); R91.1 Solitary pulmonary nodule; I89.8 Other specified noninfective disorders of lymphatic vessels and lymph nodes
CPT/HCPCS: 71250

== ENCOUNTER → 2020-12-30 | Outpatient (CLI) | payer MEDICARE ==
[~2020-12-30] MED LIST changes: -CETI10TA24 PO; +CETI10TA74 PO
--- NOTE | 2020-12-30 13:11 | RAD ---
CT of the chest without contrast 12/30/2020 INDICATION: Follow-up lung nodules. COMPARISON STUDY: CT chest without contrast April 07, 2019. TECHNIQUE: CT imaging of the chest was performed without contrast FINDINGS: Heart size is normal. No significant pericardial effusion is identified. Coronary calcification note d. Scattered small mediastinal lymph nodes noted without evidence of pathologically enlarged adenopat hy. Limited visualization of the upper abdomen demonstrates no acute abnormality or change from maura rison study. There is no pneumothorax or pleural effusion. Calcified granuloma, left lower lobe note d, unchanged. Limited visualization of the upper abdomen is unremarkable. There is a new noncalcified nodule right lower lobe measuring approximately 10 mm in diameter (thin a xial image 219). There is a second, new noncalcified nodule in the right lower lobe measuring 9 mm in diameter (axial image 209). There is a new 4 mm noncalcified nodule right middle lobe (axial image 222). The previously demonstrated 4 mm nodule in the right the lobe is unchanged. IMPRESSION: New noncalcified nodules in the right lower lobe measuring 10 mm, and 9 mm respectively. New 4 mm nodule right middle lobe. Malignancy not excluded. Recommend either 3 month follow-up scan to evaluate stability/resolution, versus PET/CT for further characterization. CT DOSING PQRS STATEMENT: One or more of the following individualized dose reduction techniques were utilized for this examinat ion: 1. Automated exposure control 2. Adjustment of the mA and/or kV according to patient size 3. Use of iterative reconstruction technique Electronically signed by: Alexis Branham MD (12/30/2020 1:09 PM) [id number]
== END ==
LOC: CT 11:16
PROVIDERS: ATTEND Internal Medicine
DX: R91.8 Other nonspecific abnormal finding of lung field (principal); I25.10 Atherosclerotic heart disease of native coronary artery without angina pectoris; R59.0 Localized enlarged lymph nodes; J84.10 Pulmonary fibrosis, unspecified
CPT/HCPCS: 71250

== ENCOUNTER → 2021-04-21 | Outpatient (CLI) | payer MEDICARE ==
[~2021-04-21] MED LIST changes: +TIZA-75 PO; -TIZA4TAB2 PO
--- NOTE | 2021-04-21 10:01 | RAD ---
CT THORAX WO History: Lung nodule Technique: Noncontrast CT of the chest was performed. Coronal and sagittal reconstructions were perfo rmed. Exposure: One or more of the following individualized dose reduction techniques were utilized for thi s examination: 1. Automated exposure control 2. Adjustment of the mA and/or kV according to patient size 3. Use of iterative reconstruction technique. Comparison: December 30, 2020 Findings: Chest: No pathologic lymphadenopathy. Mild atheromatous plaque within the aorta. Coronary artery calc ifications. No consolidation or pleural effusion. No pneumothorax. Calcified pulmonary nodules, likel y prior granulomatous disease. Right upper lobe bandlike nodular thickening measures approximately 1.7 x 0.8 cm (series 3 image 145) . New cluster of 3 to 4 mm nodules within the right lower lobe (image 209 05/07/2011). 2 mm left upper lobe pulmonary nodules laterally and anteriorly (series 3 image 122), unchanged. 2 mi nor left lower lobe pulmonary nodule (image 263), unchanged. Additional 2 mm left lower lobe pulmonar y nodule (image 243), unchanged. 2 minor left lower lobe pulmonary nodule (image 166), unchanged. 3 m m middle lobe pulmonary nodule (image 168), unchanged. 4 minor right middle lobe pulmonary nodule (im age 89), unchanged. 2 mm right lower lobe pulmonary nodule (image 243), unchanged. Additional 2 mm r ight lower lobe pulmonary nodule (image 235), unchanged. 4 mm right lower lobe pulmonary nodule (imag e 267), unchanged. Additional smaller right middle lobe pulmonary nodules 5 mm right lower lobe pulmo nary nodule (image 190), unchanged. Decreased previously seen right lower lobe nodular opacity measures 0.4 x 0.5 cm compared to 1 cm (im age 89). Decreased additional right middle lobe pulmonary nodule measures 0.4 cm compared to 0.9 cm previously. Upper abdomen: Prior cholecystectomy. Bones: No pathologic osseous lesions. Impression: 1. Increased right upper lobe bandlike nodular opacity and new right lower lobe cluster of nodules, may represent infectious or inflammatory process. Recommend 3 month follow-up chest CT without contra st for further evaluation. 2. Decreased previously seen right lower lobe nodular opacities. 3. Unchanged additional small pulmonary nodules. Electronically signed by: Elfego Uribe DO (04/21/2021 9:59 AM) [id number]
== END ==
LOC: CT 09:07
PROVIDERS: ATTEND Internal Medicine Pulmonary Disease
DX: R91.8 Other nonspecific abnormal finding of lung field (principal); I70.0 Atherosclerosis of aorta; I25.10 Atherosclerotic heart disease of native coronary artery without angina pectoris
CPT/HCPCS: 71250